=== PATIENT | male | born 1985 | race Caucasian/White ===

== ENCOUNTER 2020-05-27 14:46 | Inpatient (IN) | payer OTHER, SELFPAY ==
[2020-05-27] VITALS (25 sets, daily range): BP systolic 129–197; BP diastolic 63–134; PULSE 61–86; RESP 12–21; TEMP 36.3–37.1; O2SAT 96–99; BMI 34.4; BMI 33.8; BMI 107.0
--- NOTE | 2020-05-27 15:04 | EKG12_ITS ---
Test Reason : DIZZINESS Blood Pressure : / mmHG Vent. Rate : 066 BPM Atrial Rate : 066 BPM P-R Int : 188 ms QRS Dur : 114 ms QT Int : 432 ms P-R-T Axes : 029 -06 107 degrees QTc Int : 452 ms Normal sinus rhythm Possible Left atrial enlargement Left ventricular hypertrophy with repolarization abnormality Abnormal ECG Confirmed by NNAMDI RIVER, RC ([id number]), news videotape editor SALOMON WILLIAMSON ([id number]) on 05/29/2020 11:30:10 AM Referred By: EVELYN Confirmed By:RC COTO MD
--- NOTE | 2020-05-27 15:05 | CT_ITS ---
STUDY: CTA HEAD AND NECK WITH CONTRAST REASON FOR EXAM: Male, 34 years old. Vertigo, dizziness x 1 day, nausea, headache, hypertension. RADIATION DOSAGE (If Supplied By Facility): CTDIvol = ( 29.80 ) mGy, DLP = ( 1610.43 ) mGycm TECHNIQUE: CT angiography was performed with a multi-detector CT scanner. Data acquisition was obtained from the skull base through the vertex following intravenous administration of IV 100mL Isovue-370. MIP images were reconstructed from the axial data set. Post-processing of the angiographic images was performed, with multiplanar reformation and 3D reconstruction. Degree of stenosis (when present) measured utilizing NASCET criteria. Individualized dose optimization techniques were used for this CT. COMPARISON: No relevant priors. FINDINGS: Normal bilateral petrous carotid arteries. Normal right cavernous carotid artery with a normal supraclinoid bifurcation. Normal left cavernous carotid artery with a normal supraclinoid bifurcation. Normal right A1 segments of the anterior cerebral artery. Normal left A1 segments of the anterior cerebral artery. Normal intact anterior communicating artery (ACOM). Normal bilateral A2 segments of the anterior cerebral arteries. Normal right M1 and M2 segments of the middle cerebral arteries, with a normal M1 bifurcation. Normal left M1 and M2 segments of the middle cerebral arteries, with a normal M1 bifurcation. There is a persistent origin of the right posterior cerebral artery with absence of the posterior communicating artery (PCOM). There is non-visualization of the left posterior communicating artery (PCOM). Normal bilateral vertebral arteries. Normal basilar artery with a normal basilar bifurcation. The visualized bilateral superior cerebellar (SCA) arteries are normal. Normal bilateral P1, P2 and visualized P3 segments of the posterior cerebral arteries. There is no demonstrated aneurysm of the [place]. AORTIC ARCH: Normal visualized aortic arch. Normal origins of the brachiocephalic, left common carotid, and left subclavian arteries. RIGHT CAROTID ARTERIES: Normal right common carotid artery (CCA). There is mild atherosclerotic plaque formation with minimal narrowing of the right carotid bulb. Normal origin of the right internal carotid (ICA) artery without a hemodynamically significant stenosis. Normal visualized cervical portion of the right internal carotid artery. Normal origin of the right external carotid artery (ECA). LEFT CAROTID ARTERIES: Normal left common carotid artery (CCA). There is mild atherosclerotic plaque formation with minimal narrowing of the right carotid bulb. Normal origin of the left internal carotid (ICA) artery without a hemodynamically significant stenosis. Normal visualized cervical portion of the left internal carotid artery. Normal origin of the left external carotid artery (ECA). VERTEBRAL ARTERIES: Normal bilateral vertebral arteries. IMPRESSION: 1. No arterial dissection or intracranial/[place] aneurysm. 2. Minimal atherosclerosis of the bilateral carotid bulbs without hemodynamically significant stenosis. Electronically Signed: Nain Saini MD (Brooks) at 16:50 EDT , Service support , STUDY: CT BRAIN WITHOUT CONTRAST REASON FOR EXAM: Male, 34 years old. Vertigo, dizziness x 1 day, nausea, headache, hypertension. RADIATION DOSAGE (If Supplied By Facility): CTDIvol = ( 29.80 ) mGy, DLP = ( 1610.43 ) mGycm TECHNIQUE: Transaxial CT imaging of the brain was performed without administration of intravenous contrast material. Individualized dose optimization techniques were used for this CT. COMPARISON: No relevant priors. FINDINGS: Normal soft tissue structures. Normal calvarium. Normal size ventricles and extra-axial spaces for the patient''s age. Normal white matter tracts of the cerebral hemispheres. Normal basal ganglia and thalami. Normal brainstem. Normal cerebellum. There is no intracranial hemorrhage. There are no findings of an acute ischemic infarction. Normal visualized paranasal sinuses. CT/CTA Head AND Neck W/ Contrast IMPRESSION: No acute intracranial hemorrhage or mass effect. Electronically Signed: Nain Saini MD (Brooks) at 16:52 EDT , Service support ,
--- NOTE | 2020-05-27 15:14 | ED.DCSUM_ITS ---
- ER Visit Summary Date of Service: 05/27/20 Chief Complaint: Vertigo History of Present Illness: The patient is a 34 M who sees Kim Haider. He reports that he has vertigo that began yesterday at 530. This began while he was crouching down working on some pipes and then stood up. States that this re solved. However, when he is driving home and happened 2 more times became nauseated and vomited. He reports that is been constant since 830 yesterday. He feels off balance. He denies any slurred speech. No double vision. No numbness or weakness. No change in his hearing. No ear pain. No ringing in his ears. Patient reports that he is vomited twice altogether. There is been no blood in his emesis. He has a dull frontal headache that is 5-10 in severity. He does have a history of similar headaches. He denies any chest pain or palpitations. He denies any other complaints. Patient does report that he supposed be taking lisinopril/hydrochlorothiazide and metoprolol. He has not taken this for the past 6 months because he ran out of this. Physical Examination: Vitals: Stable. Afebrile. General: Well-nourished and well-developed. Head: Normocephalic atraumatic. HEENT: TMs are within normal limits bilaterally. Neck: Supple, no lymphadenopathy. No JVD. Nontender. Cardiovascular: Regular rate and rhythm. No murmurs. Respiratory: No respiratory distress. Clear to auscultation bilaterally. Abdominal: Soft, nontender, nondistended, normal bowel sounds. No guarding, rebound, or peritoneal signs. Back: Nontender. Extremities: Nontender, no edema. Skin: Normal color, no rash. Neurologic: Alert and oriented ?3. Cranial nerves II through XII are intact. Normal strength and sensation. Normal ltnstv-fmmc-[id number] and essb-tyjw-hhoz bilaterally. He does have horizontal nystagmus with gaze to the left only. Psych: Normal affect. Test Results: EKG is sinus at [address] changes consistent with benign early repolarization. However, he now has LVH with repolarization changes. These repolarization changes were not present in 2017. CBC shows 7 neutrophils 77 lymphocytes 16. Chem-7 shows potassium 3.8, glucose 110, BUN 23. Coags are normal. Clinical Impression(s) from Imaging Studies Head/Neck CTA 05/27/20 15:05 IMPRESSION: No acute intracranial hemorrhage or mass effect. Electronically Signed: Nain Saini MD (Brooks) at 16:52 EDT , Service support , Emergency Department Course and Treatment: Patient had an IV placed. He was given morphine, Zofran, and labetalol IV. He is given Antivert p.o. when the patient's labs returned he was given a dose of K-Dur p.o. repeat blood pressure is 169/102. Treatment Plan: Patient was discussed with Dr. Penny. He will be admitted to the hospital for further evaluation and treatment. Disposition: Admitted in improved condition. Impression: 1. Vertigo. 2. Cephalgia. 3. Hypertensive urgency. 4. Hypokalemia. This note was generated with [employer] dictation software. It may contain incorrect words, spelling, and punctuation that were not noted in review of the chart prior to signing ED Disposition - Plan for ED Patient: Referrals: Kim Haider NP, GERIATRIC NURSING ASSISTANT-C [Primary Care Provider] -
[2020-05-27] MEDS: Meclizine HCl 25 MG Tablet PO ×2 (15:28→21:38)
[2020-05-27] MEDS: Ondansetron 4 MG/2 ML Vial IV (15:28)
[2020-05-27] MEDS: 0.9% Normal Saline 1,000 ML 100 ML IV ×2 (15:28→18:40)
[2020-05-27 15:41] LABS: Absolute Lymphocyte Count 1.44 X10^3/uL (0.83-4.51); Basophil# 0.05 X10^3/uL; Basophil% 0.5 % (0-1); Eosinophil# 0.07 X10^3/uL; Eosinophils% 0.8 % (0-5); Hematocrit 41.8 % (40-54); Hemoglobin 14.5 g/dL (13.0-16.5); Lymphocyte # 1.44 X10^3/ul (4.0); Lymphocyte % 15.7 % (19-41); Mean Corp Hgb Conc 34.7 g/dL (32-36); Mean Corpuscular Hgb 29.9 pg (27.0-32.0); Mean Corpuscular Volume 86.2 fL (80-94); Mean Platelet Vol. 11.1 fl (6.2-12.0); Monocyte# 0.53 X10^3/uL; Monocyte% 5.8 % (0-10); NRBC Flagged by Analyzer 0 % (0-5); Neutrophil # 7.03 X10^3/uL (2.7-7.7); Neutrophil % 76.9 % (47-70); Platelet Count 222 K/mm3 (150-450); RBC Distribution Width CV 12.9 % (11.6-14.6); Red Blood Count 4.85 M/mm3 (4.6-6.2); White Blood Count 9.2 K/mm3 (4.4-11.0)
[2020-05-27 15:46] LABS: Bedside Glucose 110 mg/dL (70-110)
[2020-05-27 15:47] LABS: Partial Thromboplast Time 27.3 Seconds (24.1-36.2); Prothrombin Time (Protime)PT. 12.9 SECONDS (11.7-14.9)
[2020-05-27 15:52] LABS: Anion Gap 3 (5-15); BUN 23 mg/dL (7-18); BUN/Creat Ratio 23.6 RATIO (10-20); Calcium,Total 8.6 mg/dL (8.5-10.1); Chloride 107 mmol/L (98-107); Creatinine, Serum 0.97 mg/dL (0.70-1.30); EST Glomerular Filtration Rate 95 mL/min (>60); Est Glom Filt Rate - Afr Amer 114 mL/min (>60); Estimated Creatinine Clearance 112.89 ml/min; Glucose 110 mg/dL (74-106); Potassium 2.8 mmol/L (3.5-5.1); Sodium Level 141 mmol/L (136-145)
[2020-05-27] MEDS: Labetalol 100 MG/20 ML Vial 20 MG IV (16:27)
--- NOTE | 2020-05-27 17:06 | NURSING ---
PCU OBS [facility], VERTIGO
--- NOTE | 2020-05-27 17:08 | HP.PCM_ITS ---
Problem List (1) medical management Status: Chronic (2) Polycystic kidney Status: Chronic (3) Hypertension Status: Chronic (4) Appendicitis Status: Resolved History of Present Illness Date of Admission: 05/27/20 Chief Complaint: Vertigo. The patient is a 34 year old M who presents the emergency room due to vertigo. Patient reports vertigo began yesterday with intermittent episodes and has continued since that time. He reports associated nausea, vomiting. He denies chest pain, shortness of breath. Denies neurologic symptoms or focal deficits. Patient's blood pressure was noted to be significantly elevated upon presentation. He reports a history of polycystic kidney disease and hypertension. He has been off of his antihypertensives for approximately 6 months. He reports this is due to general noncompliance. Patient states he has had a history of vertigo and this episode feels similar to prior. He denies recent illness or other symptoms or complaints. He denies other past medical history. Past Medical History Past Medical History (Chronic Problems): Chronic Problems medical management (Chronic) Polycystic kidney (Chronic) Hypertension (Chronic) Allergies No Known Allergies Allergy (Verified 05/27/20 14:49) Home Medications: Ambulatory Orders Medication Instructions Recorded Hydrochlorothiazide 12.5 mg PO DAILY 07/04/14 Lisinopril [Zestril] 40 mg PO DAILY 07/04/14 Metoprolol Tartrate [Lopressor 100 mg PO BID 06/13/15 (beta vicki)] Surgical History: - - Appendectomy, left hand surgery. Psychiatric History: No pertinent psych hx Lives: Spouse/ Significant Other Smoking Status: Never smoker Alcohol: Occasional Drugs: None - *Family History Maternal History Items: Hypertension Paternal History Items: Hypertension Review of Systems Constitutional: Denies: Chills, Fever, Weight Change HEENT: Denies: Head Aches, Sinus Congestion, Sinus Drainage Cardiovascular: Denies: Chest Pain, Palpitations Respiratory: Denies: Cough, Shortness of breath at rest, Sputum production Gastrointestinal: Reports: - - Nausea, vomiting associated with vertigo. Denies: Abdominal Pain Genitourinary: Denies: Dysuria Musculoskeletal: Denies: Joint Pain, Joint Tenderness Skin: Denies: Rash, Wounds Neurological: Reports: - - Vertigo. Denies: Focal weakness, Numbness, Tingling Psychiatric: Denies: Anxiety, Depression, Homicidal Ideations, Suicidal Ideations Hematologic/ Lymphatic: Denies: Easy Bruising, Easy Bleeding VTE Information - Inpt Only VTE Present on Admission: No VTE Mechan Device Prophylaxis: None VTE Pharm Prophylaxis ordered?: No Reason prophylaxis not ordered:: Treatment Not Indicated - Physical Exam Vitals/I&O's: Vital Signs Temp Pulse Resp BP Pulse Ox 98.1 F 70 16 169/102 H 99 05/27/20 16:28 05/27/20 16:58 05/27/20 16:58 05/27/20 16:58 05/27/20 16:58 Oxygen Delivery Method Room Air Weight: 240 lb Body Mass Index (BMI) 34.4 Finger Stick Blood Glucose 110 General: Alert, Oriented x3, Cooperative HEENT: Atraumatic, PERRLA, EOMI, Normocephalic Neck: Supple, No JVD, Negative Carotid Bruits Lungs: Clear to auscultation, Normal air movement Cardiovascular: Regular rate, No murmurs Abdomen: Bowel Sounds Present, Soft, Non Tender, Non-Distended Extremities: No clubbing, No cyanosis, No edema, Capillary Refill Less than 3 Seconds Skin: No rashes, No breakdown Musculoskeletal: No Tenderness to Palpation of Joints or Extremities Neurological: Cranial nerves II-XII grossly intact, Neuro grossly intact Psych/Mental Status: Normal Affect, Appropriate Laboratory Results 05/27/20 15:30: WBC 9.2, RBC 4.85, Hgb 14.5, Hct 41.8, MCV 86.2, MCH 29.9, MCHC 34.7, RDW Std Deviation 40.0, RDW Coeff of Maureen 12.9, Plt Count 222, MPV 11.1, Immature Gran % (Auto) 0.300, Neut % (Auto) 76.9 H, Lymph % (Auto) 15.7 L, Hutchinson % (Auto) 5.8, Eos % (Auto) 0.8, Baso % (Auto) 0.5, Absolute Neuts (auto) 7.0, Absolute Lymphs (auto) 1.44, Nucleated RBC % 0 05/27/20 15:30: PT 12.9, INR 1.0, APTT 27.3 05/27/20 15:30: Sodium 141, Potassium 2.8 L, Chloride 107, Carbon Dioxide 31.0, Anion Gap 3 L, BUN 23 H, Creatinine 0.97, Estim Creat Clear Calc 112.89, Est GFR (MDRD) Af Amer 114, Est GFR (MDRD) Non-Af 95, BUN/Creatinine Ratio 23.6 H, Glucose 110 H, Calcium 8.6 05/27/20 15:38: POC Glucose 110 Current Medications Sodium Chloride () 1,000 mls @ 100 mls/hr IV .Q10H ONE Stop: 05/28/20 01:03 Last Admin: 05/27/20 15:28 Dose: 100 mls/hr Documented by: Iopamidol (Contrast Allergy Check) 0 ml IV X1 RODRIGO Assessment/Plan All Active Problems Appendicitis (Resolved) 1. Hypertensive urgency-due to noncompliance. Off of BP meds for 6 months. Patient with labile BP in ED. Will initiate Cardene. Heart rate 60s in ER, caution with labetalol. Transition to oral regimen pending MRI/BP improvement. Echo in a.m. 2. Vertigo, rule out CVA-CTA of head and neck unremarkable. Obtain MRI of brain. Scheduled meclizine. Aspirin, statin pending MRI brain. 3. Hypokalemia-replace per protocol. Trend BMP. 4. Polycystic kidney disease-follows with nephrology as outpatient. DVT prophylaxis- not indicated, low risk This patient was seen by ADRIANA Bowden under the supervision of Dr. Penny.
--- NOTE | 2020-05-27 17:20 | NURSING ---
ICU 5
--- NOTE | 2020-05-27 17:21 | NURSING ---
ICU 5
--- NOTE | 2020-05-27 17:58 | ECHOCS_ITS ---
Reason For Study: TIA/CVA Procedure This was a 2D Doppler, Color Flow transthoracic echocardiogram. The study was technically difficult. Contrast injection was performed. Exam performed portable in ICU/CCU. Left Ventricle Normal LV size. Severe concentric left ventricular hypertrophy. Left ventricular systolic function is normal. The estimated ejection fraction is 60 %. Stage 2 diastolic dysfunction. No regional wall motion abnormalities noted. Right Ventricle Normal RV size. Normal systolic function. Atria The left atrium is mildly enlarged. Normal right atrium. Bubble contrast study negative for right to left interatrial shunt. Mitral Valve Normal mitral valve. Tricuspid Valve Normal tricuspid valve. Aortic Valve Normal aortic valve. Trisinus/trileaflet aortic valve. Pulmonic Valve Normal pulmonic valve. Great Vessels Normal aortic root. The pulmonary artery is normal size. Normal inferior vena cava. Pericardium/Pleural No pericardial effusion. Medication Diluted definity 2ml given slow IV push to enhance endocardial definition. Performed a rapid injection of agitated mix of 9 cc saline and 1cc air to assess for atrial septal defect. MMode/2D Measurements & Calculations LVIDd: 4.8 cm IVSd: 2.0 cm Ao root diam: 4.4 cm LVIDs: 3.4 cm LVPWd: 1.8 cm LA dimension: 4.6 cm FS: 29.9 % LAV(MOD-bp): 63.2 ml LA A4 area: 22.7 cm2 RA A4 area: 20.2 cm2 LAV(MOD-bp) Indexed: 28.0 ml/m2 LAV(MOD-sp2): 46.3 ml LAV(MOD-sp4): 77.9 ml Time Measurements MV dec time: 0.15 sec Doppler Measurements & Calculations MV E max jus: 81.7 cm/sec Lat Peak E' Jus: 7.0 cm/sec Med Peak E' Jus: 8.3 cm/sec MV A max jus: 49.6 cm/sec E/E' lat: 11.6 E/E' med: 9.8 MV E/A: 1.6 MV V2 max: 97.1 cm/sec MV P1/2t max jus: 97.1 cm/sec Ao V2 max: 143.8 cm/sec MV max P.8 mmHg MV P1/2t: 67.6 msec Ao max P.3 mmHg MV V2 mean: 54.2 cm/sec MV dec slope: 420.7 cm/sec2 MV mean P.4 mmHg MV V2 VTI: 22.0 cm MVA(P1/2t): 3.3 cm2 LV V1 max: 123.3 cm/sec PA V2 max: 84.7 cm/sec LV V1 max P.1 mmHg Interpretation Summary Normal LV size. Severe concentric left ventricular hypertrophy. Left ventricular systolic function is normal. The estimated ejection fraction is 60 %. Stage 2 diastolic dysfunction. Bubble contrast study negative for right to left interatrial shunt. Ordering Physician: Celsa Penny Referring Physician: Kim Haider Performed By: Gerardo Rodriguez RCS
[2020-05-27] MEDS: Famotidine 20 MG Tablet PO (18:38)
[2020-05-27] MEDS: Aspirin 81 MG TAB.CHEW PO (18:38)
[2020-05-27 18:48] LABS: Magnesium 2.2 mg/dL (1.6-2.6); T4 Free Direct 0.84 ng/dL (0.76-1.46); Thyroid Stim Hormone (TSH) 0.76 uIU/mL (0.358-3.74)
[2020-05-27] MEDS: Atorvastatin Calcium 80 MG Tablet PO (21:38)
--- NOTE | 2020-05-27 22:22 | EKG12_ITS ---
Test Reason : RHYTHM CHANGE Blood Pressure : / mmHG Vent. Rate : 073 BPM Atrial Rate : 073 BPM P-R Int : 178 ms QRS Dur : 104 ms QT Int : 402 ms P-R-T Axes : 037 -03 087 degrees QTc Int : 442 ms Normal sinus rhythm Left ventricular hypertrophy with repolarization abnormality Abnormal ECG When compared with ECG of 28-MAY-2020 05:14, MANUAL COMPARISON REQUIRED, DATA IS UNCONFIRMED Confirmed by NNAMDI RIVER, RC ([id number]), sound editor SALOMON WILLIAMSON ([id number]) on 05/29/2020 12:46:05 PM Referred By: DONTRELL Confirmed By:RC COTO MD
[2020-05-27 22:36] LABS: Anion Gap 3 (5-15); BUN 17 mg/dL (7-18); BUN/Creat Ratio 18.4 RATIO (10-20); Calcium,Total 8.3 mg/dL (8.5-10.1); Chloride 109 mmol/L (98-107); Creatinine, Serum 0.92 mg/dL (0.70-1.30); EST Glomerular Filtration Rate 100 mL/min (>60); Est Glom Filt Rate - Afr Amer 121 mL/min (>60); Estimated Creatinine Clearance 119.02 ml/min; Glucose 130 mg/dL (74-106); Potassium 2.8 mmol/L (3.5-5.1); Sodium Level 141 mmol/L (136-145)
[2020-05-27 22:52] LABS: Amphetamine Urine VISTA NEGATIVE (<1000 ng/mL); Barbiturate Urine VISTA NEGATIVE (< 200 ng/mL); Benzodiazepine Urine VISTA NEGATIVE (< 200 ng/mL); Cocaine Urine VISTA NEGATIVE (< 300 ng/mL); Ecstacy Urine VISTA NEGATIVE (< 500 ng/mL); Methadone Urine VISTA NEGATIVE (< 300 ng/mL); PCP Urine VISTA NEGATIVE (< 25 ng/mL); THC Urine VISTA NEGATIVE (< 50 ng/mL); Vista UDS pH Range 6
[2020-05-27 23:39] LABS: Magnesium 2.1 mg/dL (1.6-2.6); Phosphorus 2.4 mg/dL (2.5-4.9)
[2020-05-28] VITALS (45 sets, daily range): BP systolic 129–193; BP diastolic 81–133; PULSE 51–88; RESP 8–24; TEMP 36.6–37.1; O2SAT 95–99; BMI 33.8
[2020-05-28] MEDS: 0.9% Normal Saline 1,000 ML 100 ML IV (04:00)
[2020-05-28] MEDS: Meclizine HCl 25 MG Tablet PO ×3 (05:07→21:03)
[2020-05-28 05:13] LABS: Absolute Neutrophil Count 5.8 X10^3/uL (2.0-7.7); Basophil# 0.05 X10^3/uL; Basophil% 0.6 % (0-1); Eosinophil# 0.25 X10^3/uL; Eosinophils% 2.8 % (0-5); Hematocrit 38.8 % (40-54); Hemoglobin 13.1 g/dL (13.0-16.5); Lymphocyte % 23.6 % (19-41); Mean Corp Hgb Conc 33.8 g/dL (32-36); Mean Corpuscular Hgb 29.4 pg (27.0-32.0); Mean Corpuscular Volume 87.2 fL (80-94); Mean Platelet Vol. 10.8 fl (6.2-12.0); Monocyte% 7.9 % (0-10); NRBC Flagged by Analyzer 0 % (0-5); Neutrophil # 5.77 X10^3/uL (2.7-7.7); Neutrophil % 64.8 % (47-70); Platelet Count 207 K/mm3 (150-450); RBC Distribution Width CV 12.8 % (11.6-14.6); RBC Distribution Width SD 40.7 fl (35.1-43.9); Red Blood Count 4.45 M/mm3 (4.6-6.2); White Blood Count 8.9 K/mm3 (4.4-11.0)
[2020-05-28 05:29] LABS: ALB/GLOB Ratio 0.9 RATIO (0.9-2.4); AST(SGOT) 17 U/L (15-37); Alanine Aminotransfer ALT/SGPT 28 U/L (16-61); Albumin, Serum 3.1 g/dL (3.2-5.0); Alkaline Phosphatase 59 U/L (45-117); Anion Gap 4 (5-15); BUN 15 mg/dL (7-18); BUN/Creat Ratio 16.6 RATIO (10-20); Calcium,Total 7.9 mg/dL (8.5-10.1); Chloride 110 mmol/L (98-107); Cholesterol 161 mg/dL (200); EST Glomerular Filtration Rate 103 mL/min (>60); Est Glom Filt Rate - Afr Amer 125 mL/min (>60); Estimated Creatinine Clearance 121.67 ml/min; Globulin 3.3 g/dL (2.2-4.2); Glucose 90 mg/dL (74-106); High Density Lipoprotein 41 mg/dL; Potassium 3.5 mmol/L (3.5-5.1); Protein, Total 6.4 g/dL (6.4-8.2); Sodium Level 142 mmol/L (136-145); Triglycerides 102 mg/dL; Very Low Density Lipoprotein 20 mg/dL (5-40)
--- NOTE | 2020-05-28 05:55 | MRI_ITS ---
STUDY: MRI BRAIN WITHOUT CONTRAST REASON FOR EXAM: Male, 34 years old. headache, vertigo, htn, ? posterior cva TECHNIQUE: Standardized multiplanar fat and water weighted pulse sequences were obtained. COMPARISON: 05/27/2020 and 09/23/2016 CT of the head FINDINGS: Unremarkable size of the ventricles and extra-axial spaces for the patient''s age. The ventricles are slightly asymmetric however stable since the prior examination 2016. There are multiple periventricular and subcortical white matter hyperintensities. These are atypical for age. There is a left basal ganglia focal hyperintensity which likely represents a chronic lacunar infarct. Normal bilateral basal ganglia. Normal thalami. There is no extra-axial fluid accumulation. Normal flow voids within the major intracranial circulation suggesting patency by spin echo criteria. Normal sella turcica, pituitary gland, infundibular stalk, optic chiasm and hypothalamus. Normal tectal plate and pineal gland. There are minimal hyperintensities of the stephanie. The midbrain and medulla are otherwise normal. Normal cerebellum. Normal basal cisterns. MRI/Brain without Contrast IMPRESSION: No acute intracranial abnormality. Left basal ganglia chronic lacunar infarct. Moderate white matter hyperintensities. Given the history of chronic hypertension, leading differential consideration is chronic microvascular ischemic disease. Electronically Signed: Yadi Robert MD at 12:07 EDT Tel , Service support ,
--- NOTE | 2020-05-28 05:55 | EKG12_ITS ---
Test Reason : AM EKG Blood Pressure : / mmHG Vent. Rate : 067 BPM Atrial Rate : 067 BPM P-R Int : 178 ms QRS Dur : 102 ms QT Int : 426 ms P-R-T Axes : 036 007 084 degrees QTc Int : 450 ms Normal sinus rhythm Left ventricular hypertrophy with repolarization abnormality Abnormal ECG When compared with ECG of 27-MAY-2020 22:15, MANUAL COMPARISON REQUIRED, DATA IS UNCONFIRMED Confirmed by NNAMDI RIVER, RC ([id number]), editor book SALOMON WILLIAMSON ([id number]) on 05/29/2020 12:46:19 PM Referred By: DONTRELL Confirmed By:RC COTO MD
[2020-05-28] MEDS: Labetalol (Prefilled) 20 MG/4 ML IV ×2 (07:26→08:35)
[2020-05-28] MEDS: 0.9% Saline Lock 10 ML Syringe IV (07:26)
--- NOTE | 2020-05-28 07:29 | EKG12_ITS ---
Test Reason : EKG CHANGES Blood Pressure : / mmHG Vent. Rate : 078 BPM Atrial Rate : 078 BPM P-R Int : 184 ms QRS Dur : 112 ms QT Int : 402 ms P-R-T Axes : 028 010 094 degrees QTc Int : 458 ms Normal sinus rhythm Left ventricular hypertrophy with repolarization abnormality Inferior infarct , age undetermined Abnormal ECG When compared with ECG of 27-MAY-2020 15:31, MANUAL COMPARISON REQUIRED, DATA IS UNCONFIRMED Confirmed by NNAMDI RIVER, RC ([id number]), acquisition editor SALOMON WILLIAMSON ([id number]) on 05/29/2020 12:47:27 PM Referred By: Confirmed By:RC COTO MD
--- NOTE | 2020-05-28 07:37 | CON.PCM_ITS ---
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 Patient had been reportedly crouching down working on some pipes and then stood up. Patient started to have a headache and then developed nausea and vomiting. Patient states the headache persisted for almost 24 hours and he had balance issues. Patient denied any other focal neurologic deficits such as slurred speech, double vision, numbness, weakness, tinnitus or problems hearing. No hematemesis was reported. Patient described the headache as frontal with 5 out of 10 severity. Patient has had similar type headaches. Patient denied any chest pain, palpitations, nausea or vomiting. Patient is reportedly supposed to be taking lisinopril, hydrochlorothiazide and metoprolol, but has not used this medication in the past 6 months. On presentation to the emergency department, patient's EKG showed early repolarization with LVH. Chemistry work-up was relatively unremarkable. CTA of the head and neck showed no intracranial hemorrhage or mass-effect. Patient was significantly hypertensive in the ER with a blood pressure of 169/102. Patient was given morphine, Zofran and IV labetalol and transferred to the intensive care unit for further evaluation. Overnight, patient did have to be initiated on a Cardene drip. Requirements were elevated secondary to possible ischemic encephalopathy. This was discontinued this morning, but patient insisted on higher blood pressures. Patient has intermittently reported chest heaviness, but EKGs have been relatively unremarkable except for early repolarization. Patient was evaluated by cardiology this morning. Patient reports that he has not been very good about taking medications for a while. Patient states he has heard of cerebral aneurysms associated with polycystic kidney disease, but is unclear if this is been present previously. Patient denies any coiling or other cerebral interventions. Patient continues to deny any focal neurologic deficits. Patient does work as a structural welder and denies any environmental exposures. Review of systems otherwise negative from a constitutional, HEENT, respiratory, cardiovascular, GI, genitourinary, musculoskeletal, skin, neurologic, psychiatric and hematologic system unless stated above. Past Medical History Past Medical History (Chronic Problems): Chronic Problems medical management (Chronic) Polycystic kidney (Chronic) Hypertension (Chronic) Allergies No Known Allergies Allergy (Verified 05/27/20 14:49) Home Medications: Ambulatory Orders Medication Instructions Recorded Hydrochlorothiazide 12.5 mg PO DAILY 07/04/14 Lisinopril [Zestril] 40 mg PO DAILY 07/04/14 Metoprolol Tartrate [Lopressor 100 mg PO BID 06/13/15 (beta vicki)] Surgical History: - - Appendectomy, left hand surgery. Psychiatric History: No pertinent psych hx Lives: Spouse/ Significant Other Smoking Status: Never smoker Alcohol: Occasional Drugs: None - *Family History Maternal History Items: Hypertension Paternal History Items: Hypertension Review of Systems Comment: See HPI Patient Problems: Active and Suspected Problems Dizziness (Acute) Headache (Acute) Objective: All imaging was personally reviewed. Agree with formal interpretation. Patient did have a stress report completed in 2017 that was unremarkable. No pulmonary function tests have been completed. - Physical Exam Vitals/I&O's: Vital Signs Temp Pulse Resp BP Pulse Ox 36.7 C 66 20 H 165/121 H 99 05/28/20 05:00 05/28/20 05:00 05/28/20 05:00 05/28/20 05:00 05/28/20 05:00 Oxygen Delivery Method Room Air Weight: 109 kg Body Mass Index (BMI) 33.8 Finger Stick Blood Glucose 110 Intake and Output for Last 24 Hours 05/26/20 05/27/20 05/28/20 23:59 23:59 23:59 Intake Total 417.50 / 517.50 2283.33 / 2283.33 Output Total 500 / 500 500 / 500 Balance -82.50 / 17.50 1783.33 / 1783.33 General: Alert, Oriented x3, Cooperative, No apparent distress, Well developed, Well nourished, - - Speaking in full sentences. No facial droop HEENT: Atraumatic, PERRLA, EOMI, Normocephalic, - - No scleral icterus or injection noted Oral: Moist Mucosa, No Gingival or Mucosal Lesions/ Ulcerations Neck: Supple, No JVD, No Nodes, Trachea Midline Lungs: Clear to auscultation, Normal air movement, No rhonchi, No wheeze, No rales Cardiovascular: Regular rate, Regular Rhythm, Normal S1, Normal S2, No murmurs, No rub noted, No Gallop Abdomen: Bowel Sounds Present, Soft, Non Tender, Non-Distended, Obese Extremities: No clubbing, No cyanosis, No edema, Capillary Refill Less than 3 Seconds Skin: No rashes, No breakdown Musculoskeletal: No Tenderness to Palpation of Joints or Extremities Lymphatic: No Cervical, Supraclavicular, or Inguinal Adenopathy Neurological: Cranial nerves II-XII grossly intact, Deep Tendon Reflexes 2+/4 and Symmetrical, Neuro grossly intact, Motor Exam 5/5 strength throughout Psych/Mental Status: Alert and oriented to time, place, person, mood and affect Laboratory Results 05/27/20 15:30: WBC 9.2, RBC 4.85, Hgb 14.5, Hct 41.8, MCV 86.2, MCH 29.9, MCHC 34.7, RDW Std Deviation 40.0, RDW Coeff of Maureen 12.9, Plt Count 222, MPV 11.1, Immature Gran % (Auto) 0.300, Neut % (Auto) 76.9 H, Lymph % (Auto) 15.7 L, Chase % (Auto) 5.8, Eos % (Auto) 0.8, Baso % (Auto) 0.5, Absolute Neuts (auto) 7.0, Absolute Lymphs (auto) 1.44, Nucleated RBC % 0 05/27/20 15:30: PT 12.9, INR 1.0, APTT 27.3 05/27/20 15:30: Sodium 141, Potassium 2.8 L, Chloride 107, Carbon Dioxide 31.0, Anion Gap 3 L, BUN 23 H, Creatinine 0.97, Estim Creat Clear Calc 112.89, Est GFR (MDRD) Af Amer 114, Est GFR (MDRD) Non-Af 95, BUN/Creatinine Ratio 23.6 H, Glucose 110 H, Calcium 8.6 05/27/20 15:30: Hemoglobin A1c 5.0 05/27/20 15:38: POC Glucose 110 05/27/20 18:15: Magnesium 2.2, Troponin I 0.018, TSH 0.76, Free T4 0.84 05/27/20 21:30: Urine Opiates Screen NEGATIVE, Urine Methadone Screen NEGATIVE, Ur Barbiturates Screen NEGATIVE, Ur Phencyclidine Scrn NEGATIVE, Ur Amphetamines Screen NEGATIVE, U Methamphetamin-MDMA NEGATIVE, U Benzodiazepines Scrn NEGATIVE, Urine Cocaine Screen NEGATIVE, U Cannabinoids Screen NEGATIVE, Ur Drug Screen Comment 05/27/20 21:30: Sodium 141, Potassium 2.8 L, Chloride 109 H, Carbon Dioxide 29.0, Anion Gap 3 L, BUN 17, Creatinine 0.92, Estim Creat Clear Calc 119.02, Est GFR (MDRD) Af Amer 121, Est GFR (MDRD) Non-Af 100, BUN/Creatinine Ratio 18.4, Glucose 130 H, Calcium 8.3 L 05/27/20 21:30: Troponin I 0.024 05/27/20 21:30: Phosphorus 2.4 L, Magnesium 2.1 05/28/20 00:30: Troponin I 0.022 05/28/20 05:00: WBC 8.9, RBC 4.45 L, Hgb 13.1, Hct 38.8 L, MCV 87.2, MCH 29.4, MCHC 33.8, RDW Std Deviation 40.7, RDW Coeff of Maureen 12.8, Plt Count 207, MPV 10.8, Immature Gran % (Auto) 0.300, Neut % (Auto) 64.8, Lymph % (Auto) 23.6, Chase % (Auto) 7.9, Eos % (Auto) 2.8, Baso % (Auto) 0.6, Absolute Neuts (auto) 5.8, Absolute Lymphs (auto) 2.10, Nucleated RBC % 0 05/28/20 05:00: Sodium 142, Potassium 3.5, Chloride 110 H, Carbon Dioxide 28.0, Anion Gap 4 L, BUN 15, Creatinine 0.90, Estim Creat Clear Calc 121.67, Est GFR (MDRD) Af Amer 125, Est GFR (MDRD) Non-Af 103, BUN/Creatinine Ratio 16.6, Glucose 90, Calcium 7.9 L, Total Bilirubin 0.40, AST 17, ALT 28, Alkaline Phosphatase 59, Total Protein 6.4, Albumin 3.1 L, Globulin 3.3, Albumin/Globulin Ratio 0.9, Triglycerides 102, Cholesterol 161, LDL Cholesterol 100, VLDL Cholesterol 20, HDL Cholesterol 41 Current Medications Acetaminophen (Tylenol) 650 mg PO Q6H PRN PRN PRN Reason: Pain Score 1-10/Temp > 100.7 F Al Hydroxide/Mg Hydroxide (Mylanta Ii) 30 ml PO Q6H PRN PRN PRN Reason: Gastric Burning Albuterol Sulfate (Ventolin Aerosols) 2.5 mg INHALATION Q2H PRN PRN PRN Reason: Dyspnea, wheezing Aspirin (Aspirin, Baby) 81 mg PO DAILY@0800 [facility] Last Admin: 05/27/20 18:38 Dose: 81 mg Documented by: Atorvastatin Calcium (Lipitor) 80 mg PO QHS [facility] Last Admin: 05/27/20 21:38 Dose: 80 mg Documented by: Enoxaparin Sodium (Lovenox) 40 mg SC DAILY [facility] Famotidine (Pepcid) 20 mg PO BID [facility] Last Admin: 05/27/20 18:38 Dose: 20 mg Documented by: Guaifenesin (Robitussin) 10 ml PO Q4H PRN PRN PRN Reason: COUGH Hydralazine HCl (Apresoline Iv) 5 mg IV Q30M PRN PRN Reason: to maintain BP goals Nicardipine HCl 25 mg/ Sodium (Chloride) 250 mls @ 50 mls/hr CONT INF .Q5H [facility]; Protocol Last Admin: 05/28/20 05:00 Dose: Not Given Documented by: Sodium Chloride () 250 mls @ 15 mls/hr IV .[id number] PRN PRN Reason: Saline Flush Sodium Chloride () 250 mls @ 15 mls/hr IV .[id number] PRN PRN Reason: Additional IVPB Infusion Labetalol HCl (Trandate) 10 - 20 mg IV Q10M PRN PRN PRN Reason: to Maintain BP Goals Last Admin: 05/28/20 07:26 Dose: 20 mg Documented by: Magnesium Hydroxide (Milk Of Magnesia) 30 ml PO DAILY PRN PRN PRN Reason: Constipation Meclizine HCl (Antivert) 25 mg PO TID [facility] Last Admin: 05/28/20 05:07 Dose: 25 mg Documented by: Melatonin (Melatonin) 3 mg PO QHS PRN PRN PRN Reason: INSOMNIA Morphine Sulfate () 4 mg IV Q3H PRN PRN PRN Reason: Pain Score 6-10/10 Ondansetron HCl (Zofran) 4 mg IV Q8H PRN PRN PRN Reason: NAUSEA/VOMITING Oxycodone HCl (Oxyir) 5 mg PO Q4H PRN PRN PRN Reason: Pain Score 4-5/10 Prochlorperazine Edisylate (Compazine Iv) 5 mg IV Q4H PRN PRN PRN Reason: Breakthrough Nausea/Vomiting Psyllium Hydrophilic Mucilloid (Metamucil) 1 packet PO DAILY PRN PRN PRN Reason: Constipation Senna/Docusate Sodium (Senokot-S, Amna-Colace) 2 tablet PO BID PRN PRN Reason: Constipation Sodium Chloride () 10 - 40 ml IV UD PRN PRN Reason: SALINE FLUSH Last Admin: 05/28/20 07:26 Dose: 10 ml Documented by: Throat Lozenges (Cepacol Sore Throat Lozenge) 1 lozenge MUCOUS MEM Q2H PRN PRN PRN Reason: SORE THROAT Clinical Impression(s) from Imaging Studies Head/Neck CTA 05/27/20 15:05 IMPRESSION: No acute intracranial hemorrhage or mass effect. Electronically Signed: Nain Saini MD (Brooks) at 16:52 EDT , Service support , Assessment/Plan Active and Suspected Problems Dizziness (Acute) Headache (Acute) RECOMMENDATIONS: 1. Obtain cardiology consult 2. Obtain MRI/MRA to evaluate for cerebral aneurysm versus infarct 3. Consider reinitiation of baseline blood pressure medications 4. Possibly reinitiate Cardene for aggressive blood pressure control 5. Hold Lovenox until MRI can be completed 6. Potentially transfer out of the intensive care unit later today pending MRI results. IMPRESSIONS: 1. Hypertensive urgency secondary to medication noncompliance Unclear etiology of dizziness. Patient has been noncompliant with antihypertensives at home leading to elevated blood pressures. Patient has reported intermittent chest pain, so cardiology will be asked to evaluate. Of secondary concern, cerebral aneurysms have been seen with polycystic kidney disease. MRA and MRI have been ordered. If negative, presentation may be secondary to noncompliance blood pressure medications and hypertensive urgency. Would defer to cardiology on if stress test is necessary. We will continue with Cardene. Consider reinitiation of baseline medications, but since cardiology is involved we will hold off on their opinion. Could consider a neurology consult pending results of MRI 2. Polycystic kidney disease/hypokalemia Patient with relatively normal renal function at this time. However, stressed to the patient that continued noncompliance with hypertensive medications could lead to significant worsening over time. Patient should be able to tolerate contrast for investigation. Patient responded well to oral supplementation. 3. Hypertension/history of noncompliance/obesity Complicates care, management, recovery and prognosis. Continue education. Inpatient E&M: 37142 Init Hosp L3
--- NOTE | 2020-05-28 08:14 | CON.PCM_ITS ---
Reason for Consult Date of Consultation: 05/28/20 Reason for Consultation: Abnormal EKG changes History of Present Illness: The patient is a 34 year old M with a past medical history significant for hypertension who presented to the hospital on 05/27/2020 with vertigo dizziness as well as a headache. He apparently had been working on some pipes when the above started. This headache was persistent and he also developed some nausea and vomiting. He denied slurred speech double vision numbness or tingling sensation. He is also denied any chest pain or palpitations nausea or vomiting. He previously was seen by cardiology but has not followed up in over 5 years. He was admitted to the intensive care unit he was started on nicardipine drip and an EKG was done. He was noted to have early repolarization but also had T wave inversions noted in lead I and aVL. Due to the above it was felt that cardiology should see him for further evaluation and management. At this particular time he appears to be quite stable. [] Past Medical History Allergies/Adverse Reactions: Allergies No Known Allergies Allergy (Verified 05/27/20 14:49) Home Medications: Ambulatory Orders Medication Instructions Recorded Hydrochlorothiazide 12.5 mg PO DAILY 07/04/14 Lisinopril [Zestril] 40 mg PO DAILY 07/04/14 Metoprolol Tartrate [Lopressor 100 mg PO BID 06/13/15 (beta vicki)] Past Medical History (Chronic Problems): Chronic Problems medical management (Chronic) Polycystic kidney (Chronic) Hypertension (Chronic) Surgical History: - - Appendectomy, left hand surgery. Psychiatric History: No pertinent psych hx - *Family History Maternal History Items: Hypertension Paternal History Items: Hypertension Lives: Spouse/ Significant Other Smoking Status: Never smoker Alcohol: Occasional Drugs: None Subjectve: Patient seen and evaluated. Objective: Vital Signs Temp Pulse Resp BP Pulse Ox 98.1 F 74 22 H 176/117 H 97 05/28/20 08:00 05/28/20 08:00 05/28/20 08:00 05/28/20 08:00 05/28/20 08:00 Oxygen Delivery Method Room Air Weight: 240 lb 4.862 oz Body Mass Index (BMI) 33.8 Finger Stick Blood Glucose 110 Intake and Output for Last 24 Hours 05/26/20 05/27/20 05/28/20 23:59 23:59 23:59 Intake Total 417.50 / 517.50 2696.66 / 2696.66 Output Total 500 / 500 500 / 500 Balance -82.50 / 17.50 2196.66 / 2196.66 General: Awake, Alert, Oriented x 3 HEENT: PERRL, EOMI, Sclera Non Icteric Neck: Supple, Good ROM, No Lymph Node Enlargement Lungs: Clear to auscultation Cardiovascular: Regular Rhythm, Normal S1, Normal S2, No Murmurs, No Rubs, No Gallops Vascular: No Carotid Bruits, Normal Femoral Pulses, Normal Radial Pulses, Normal Dorsalis Pedal Pulse, Normal Posterior Tibial Pulses Abdomen: Bowel Sounds Present, Soft, Non Tender, No HSM, No Organomegaly Extremities: No Cyanosis, No Clubbing, No edema Lymphatic: No Lymph Node Enlargement Neurological: No Focal Motor or Sensory Deficit Psych/Mental Status: Appropriate 05/27/20 15:30: WBC 9.2, RBC 4.85, Hgb 14.5, Hct 41.8, MCV 86.2, MCH 29.9, MCHC 34.7, Plt Count 222, MPV 11.1, Immature Gran % (Auto) 0.300, Neut % (Auto) 76.9 H, Lymph % (Auto) 15.7 L, [place] % (Auto) 5.8, Eos % (Auto) 0.8, Baso % (Auto) 0.5, Absolute Neuts (auto) 7.0, Nucleated RBC % 0 05/27/20 15:30: PT 12.9, INR 1.0, APTT 27.3 05/27/20 15:30: Sodium 141, Potassium 2.8 L, Chloride 107, Carbon Dioxide 31.0, Anion Gap 3 L, BUN 23 H, Creatinine 0.97, Est GFR (MDRD) Af Amer 114, Est GFR (MDRD) Non-Af 95, BUN/Creatinine Ratio 23.6 H, Glucose 110 H, Calcium 8.6 05/27/20 15:30: Hemoglobin A1c 5.0 05/27/20 18:15: Magnesium 2.2, Troponin I 0.018 05/27/20 21:30: Sodium 141, Potassium 2.8 L, Chloride 109 H, Carbon Dioxide 29.0, Anion Gap 3 L, BUN 17, Creatinine 0.92, Est GFR (MDRD) Af Amer 121, Est GFR (MDRD) Non-Af 100, BUN/Creatinine Ratio 18.4, Glucose 130 H, Calcium 8.3 L 05/27/20 21:30: Troponin I 0.024 05/27/20 21:30: Phosphorus 2.4 L, Magnesium 2.1 05/28/20 00:30: Troponin I 0.022 05/28/20 05:00: WBC 8.9, RBC 4.45 L, Hgb 13.1, Hct 38.8 L, MCV 87.2, MCH 29.4, MCHC 33.8, Plt Count 207, MPV 10.8, Immature Gran % (Auto) 0.300, Neut % (Auto) 64.8, Lymph % (Auto) 23.6, [place] % (Auto) 7.9, Eos % (Auto) 2.8, Baso % (Auto) 0.6, Absolute Neuts (auto) 5.8, Nucleated RBC % 0 05/28/20 05:00: Sodium 142, Potassium 3.5, Chloride 110 H, Carbon Dioxide 28.0, Anion Gap 4 L, BUN 15, Creatinine 0.90, Est GFR (MDRD) Af Amer 125, Est GFR (MDRD) Non-Af 103, BUN/Creatinine Ratio 16.6, Glucose 90, Calcium 7.9 L, Total Bilirubin 0.40, Triglycerides 102, Cholesterol 161, LDL Cholesterol 100, VLDL Cholesterol 20, HDL Cholesterol 41 Rhythm: EKG: Normal sinus rhythm with repolarization changes T wave inversions noted in 1 and aVL ECHO: Pending Stress Test: Cardiac Cath: PCI: CT Surgery: Holter monitor: EPS: PPM: CXR: Chest CT Scan: Assessment/Plan 1. Severe uncontrolled hypertension * Patient has a history of hypertension which has been longstanding. His previous echocardiogram from 2014 had demonstrated moderate LVH. The above exacerbation is likely due to noncompliance. My recommendation would be to reinstitute his current medical therapy with lisinopril, metoprolol, amlodipine as noted above. Hydrochlorothiazide can also be added depending on his response over the next 24 hours. * The echocardiogram should be repeated to assess his left ventricular function. * I think the EKG changes are secondary to repolarization. His cardiac enzymes are essentially unremarkable. We will continue to follow-up on the above. I do not think that any stress testing or invasive management at this time is warranted. * * Thank you for allowing me to participate in the care of your patient. Please don't hesitate to call if any issues arise.
--- NOTE | 2020-05-28 08:20 | NURSING ---
pt off floor to mri with finger lift operator. 20mg IV labetalol given to [facility], finger lift operator, per Dr Landry order to give if SBP >170 while down at MRI.
--- NOTE | 2020-05-28 08:47 | NURSING ---
Pre-MRI pt's b/p 193/132, 20mg IV Labetolol given IVP per order (see MAR).
[2020-05-28] MEDS: Famotidine 20 MG Tablet PO ×2 (09:57→21:03)
[2020-05-28] MEDS: amLODIPine 10 MG Tablet PO (09:57)
[2020-05-28] MEDS: Lisinopril 40 MG Tablet PO (09:57)
[2020-05-28] MEDS: Metoprolol Tartrate 100 MG Tablet PO ×2 (09:57→21:03)
--- NOTE | 2020-05-28 10:40 | CASEMGMT ---
RN SAMIRA Face to Face with patient for initial transition planning/care coordination assessment. RN CM introduced self and role at [facility]. Patient lying in bed, alert and oriented. Patient willing to participate in assessment and is able to answer all questions appropriately. Care providers, pharmacy, and demographics verified. Patient wishes to discharge home, denies need for home health at this time. Patient states he has no further needs or concerns at this time. CM to follow for discharge planning needs that may arise. PCP: Vitaly SAMUELS Specialists: None Preferred Pharmacy: [facility] Insurance: [facility] Prescription Benefit: yes Living Will/HPOA: none LNOK: Living Arrangements: Patient lives with in a 1 story home with 2 steps to enter the home. Patient states he is independent at home. Transportation: self, DME/HHC: Patient states he has BP cuff at home. Patient denies further DME or HHC. Disposition Plan: Patient to discharge home with family support and follow-up plans in place. Solange ESTRADA, RN, CM
[2020-05-28] MEDS: Enoxaparin 40 MG/0.4 ML Syringe SC (12:42)
[2020-05-28] MEDS: Aspirin 81 MG TAB.CHEW PO (12:42)
--- NOTE | 2020-05-28 13:10 | PCM.PN.HOSP ---
Patient Problems: Active and Suspected Problems Dizziness (Acute) Headache (Acute) Reason for Visit: hypertensive urgency Subjective: dizziness improved. Vitals/I&O's: Vital Signs Temp Pulse Resp BP Pulse Ox 37.1 C 77 21 H 149/89 H 98 05/28/20 12:00 05/28/20 13:00 05/28/20 13:00 05/28/20 13:00 05/28/20 13:00 Oxygen Delivery Method Room Air Weight: 109 kg Body Mass Index (BMI) 33.8 Finger Stick Blood Glucose 110 Intake and Output for Last 24 Hours 05/26/20 05/27/20 05/28/20 23:59 23:59 23:59 Intake Total 417.50 / 517.50 3259.16 / 3259.16 Output Total 500 / 500 1250 / 1250 Balance -82.50 / 17.50 General: Alert, No apparent distress HEENT: Atraumatic, Normocephalic Oral: Moist Mucosa, No Gingival or Mucosal Lesions/ Ulcerations Neck: No Nodes, Thyroid Normal Size and Texture Lungs: Clear to auscultation, Normal air movement, No rhonchi, No wheeze, No rales Cardiovascular: Regular rate, Regular Rhythm, Normal S1, Normal S2, No murmurs Abdomen: Bowel Sounds Present, Soft, Non Tender, Non-Distended Extremities: No edema, No Calf Tenderness Skin: No rashes, No breakdown Musculoskeletal: No Tenderness to Palpation of Joints or Extremities, No Muscle Wasting Psych/Mental Status: Normal Affect, Appropriate Laboratory Results 05/27/20 15:30: WBC 9.2, RBC 4.85, Hgb 14.5, Hct 41.8, MCV 86.2, MCH 29.9, MCHC 34.7, RDW Std Deviation 40.0, RDW Coeff of Maureen 12.9, Plt Count 222, MPV 11.1, Immature Gran % (Auto) 0.300, Neut % (Auto) 76.9 H, Lymph % (Auto) 15.7 L, [place] % (Auto) 5.8, Eos % (Auto) 0.8, Baso % (Auto) 0.5, Absolute Neuts (auto) 7.0, Absolute Lymphs (auto) 1.44, Nucleated RBC % 0 05/27/20 15:30: PT 12.9, INR 1.0, APTT 27.3 05/27/20 15:30: Sodium 141, Potassium 2.8 L, Chloride 107, Carbon Dioxide 31.0, Anion Gap 3 L, BUN 23 H, Creatinine 0.97, Estim Creat Clear Calc 112.89, Est GFR (MDRD) Af Amer 114, Est GFR (MDRD) Non-Af 95, BUN/Creatinine Ratio 23.6 H, Glucose 110 H, Calcium 8.6 05/27/20 15:30: Hemoglobin A1c 5.0 05/27/20 15:38: POC Glucose 110 05/27/20 18:15: Magnesium 2.2, Troponin I 0.018, TSH 0.76, Free T4 0.84 05/27/20 21:30: Urine Opiates Screen NEGATIVE, Urine Methadone Screen NEGATIVE, Ur Barbiturates Screen NEGATIVE, Ur Phencyclidine Scrn NEGATIVE, Ur Amphetamines Screen NEGATIVE, U Methamphetamin-MDMA NEGATIVE, U Benzodiazepines Scrn NEGATIVE, Urine Cocaine Screen NEGATIVE, U Cannabinoids Screen NEGATIVE, Ur Drug Screen Comment 05/27/20 21:30: Sodium 141, Potassium 2.8 L, Chloride 109 H, Carbon Dioxide 29.0, Anion Gap 3 L, BUN 17, Creatinine 0.92, Estim Creat Clear Calc 119.02, Est GFR (MDRD) Af Amer 121, Est GFR (MDRD) Non-Af 100, BUN/Creatinine Ratio 18.4, Glucose 130 H, Calcium 8.3 L 05/27/20 21:30: Troponin I 0.024 05/27/20 21:30: Phosphorus 2.4 L, Magnesium 2.1 05/28/20 00:30: Troponin I 0.022 05/28/20 05:00: WBC 8.9, RBC 4.45 L, Hgb 13.1, Hct 38.8 L, MCV 87.2, MCH 29.4, MCHC 33.8, RDW Std Deviation 40.7, RDW Coeff of Maureen 12.8, Plt Count 207, MPV 10.8, Immature Gran % (Auto) 0.300, Neut % (Auto) 64.8, Lymph % (Auto) 23.6, [place] % (Auto) 7.9, Eos % (Auto) 2.8, Baso % (Auto) 0.6, Absolute Neuts (auto) 5.8, Absolute Lymphs (auto) 2.10, Nucleated RBC % 0 05/28/20 05:00: Sodium 142, Potassium 3.5, Chloride 110 H, Carbon Dioxide 28.0, Anion Gap 4 L, BUN 15, Creatinine 0.90, Estim Creat Clear Calc 121.67, Est GFR (MDRD) Af Amer 125, Est GFR (MDRD) Non-Af 103, BUN/Creatinine Ratio 16.6, Glucose 90, Calcium 7.9 L, Total Bilirubin 0.40, AST 17, ALT 28, Alkaline Phosphatase 59, Total Protein 6.4, Albumin 3.1 L, Globulin 3.3, Albumin/Globulin Ratio 0.9, Triglycerides 102, Cholesterol 161, LDL Cholesterol 100, VLDL Cholesterol 20, HDL Cholesterol 41 Current Medications Acetaminophen (Tylenol) 650 mg PO Q6H PRN PRN PRN Reason: Pain Score 1-10/Temp > 100.7 F Albuterol Sulfate (Ventolin Aerosols) 2.5 mg INHALATION Q2H PRN PRN PRN Reason: Dyspnea, wheezing Amlodipine Besylate (Norvasc) 10 mg PO DAILY [facility] Last Admin: 05/28/20 09:57 Dose: 10 mg Documented by: Aspirin (Aspirin, Baby) 81 mg PO DAILY@0800 [facility] Last Admin: 05/28/20 12:42 Dose: 81 mg Documented by: Atorvastatin Calcium (Lipitor) 80 mg PO QHS [facility] Last Admin: 05/27/20 21:38 Dose: 80 mg Documented by: Enoxaparin Sodium (Lovenox) 40 mg SC DAILY [facility] Last Admin: 05/28/20 12:42 Dose: 40 mg Documented by: Famotidine (Pepcid) 20 mg PO BID [facility] Last Admin: 05/28/20 09:57 Dose: 20 mg Documented by: Hydralazine HCl (Apresoline Iv) 5 mg IV Q30M PRN PRN Reason: to maintain BP goals Nicardipine HCl 25 mg/ Sodium (Chloride) 250 mls @ 50 mls/hr CONT INF .Q5H [facility]; Protocol Last Titration: 05/28/20 13:00 Dose: 2.5 mg/hr, 25 mls/hr Documented by: Sodium Chloride () 250 mls @ 15 mls/hr IV .[id number] PRN PRN Reason: Saline Flush Sodium Chloride () 250 mls @ 15 mls/hr IV .[id number] PRN PRN Reason: Additional IVPB Infusion Labetalol HCl (Trandate) 10 - 20 mg IV Q10M PRN PRN PRN Reason: to Maintain BP Goals Last Admin: 05/28/20 08:35 Dose: 20 mg Documented by: Lisinopril (Zestril) 40 mg PO DAILY [facility] Last Admin: 05/28/20 09:57 Dose: 40 mg Documented by: Meclizine HCl (Antivert) 25 mg PO TID [facility] Last Admin: 05/28/20 12:43 Dose: 25 mg Documented by: Metoprolol Tartrate (Lopressor (Beta Gerber)) 100 mg PO BID [facility] Last Admin: 05/28/20 09:57 Dose: 100 mg Documented by: Senna/Docusate Sodium (Senokot-S, Amna-Colace) 2 tablet PO BID PRN PRN Reason: Constipation Sodium Chloride () 10 - 40 ml IV UD PRN PRN Reason: SALINE FLUSH Last Admin: 05/28/20 07:26 Dose: 10 ml Documented by: STROKE Vital Signs/Narrative: Vital Signs Temp Pulse Resp BP Pulse Ox 05/28/20 13:00 77 21 H 149/89 H 98 05/28/20 12:00 37.1 C 72 20 H 156/104 H 97 05/28/20 11:12 82 05/28/20 11:00 82 21 H 152/106 H 97 05/28/20 10:45 79 159/110 H 05/28/20 10:30 84 161/103 H 05/28/20 10:15 88 169/117 H 05/28/20 10:00 36.9 C 76 21 H 158/113 H 96 05/28/20 09:57 81 154/100 H 05/28/20 09:45 79 154/100 H 05/28/20 09:30 74 163/107 H 05/28/20 09:15 75 179/124 H Medical Necessity - Tobacco Use Smoking Status: Never smoker Assessment/Plan All Active Problems Dizziness (Acute) Headache (Acute) Appendicitis (Resolved) 1. hypertensive urgency improved on nicardipine gtt encouraged pt the importance of compliance and finding time to schedule medication for BP. echo showed EF 60% 2. vertigo maybe related with above supportive mgmt 3. hypokalemia improved with replacement 4. VTE prophylaxis: enoxaparin Inpatient E&M: 68419 Subs Hosp L2
--- NOTE | 2020-05-28 13:59 | CASEMGMT ---
SW did not complete a PHQ 9 as per physician patient did not have a Stroke or TIA. Mariaa RODRIGUEZ MSW
[2020-05-28] MEDS: Atorvastatin Calcium 80 MG Tablet PO (21:03)
[2020-05-29] VITALS (19 sets, daily range): BP systolic 125–168; BP diastolic 93–119; PULSE 54–97; RESP 13–23; TEMP 36.3–36.6; O2SAT 96–99; BMI 33.8
[2020-05-29] MEDS: Labetalol (Prefilled) 20 MG/4 ML IV (03:10)
[2020-05-29] MEDS: 0.9% Saline Lock 10 ML Syringe IV (03:13)
[2020-05-29] MEDS: Meclizine HCl 25 MG Tablet PO (05:49)
--- NOTE | 2020-05-29 07:00 | PN_ITS ---
Subjective: Patient did okay overnight. Patient's blood pressure continues to be elevated, but symptoms have resolved. Patient has been off of Cardene drip since yesterday at 2 PM. Patient denies any focal neurologic deficits. Objective: MRI shows a previous left basal ganglia infarct with moderate white matter changes consistent with hypertension General: Alert, Oriented x3, Cooperative, No apparent distress, Well developed, Well nourished, - - Speaking in full sentences. HEENT: Atraumatic, PERRLA, EOMI, Normocephalic, - - No scleral icterus or injection noted. Oral: Moist Mucosa, No Gingival or Mucosal Lesions/ Ulcerations Neck: Supple, No JVD, No Nodes, Trachea Midline Lungs: Clear to auscultation, Normal air movement, No rhonchi, No wheeze, No rales Cardiovascular: Regular rate, Regular Rhythm, Normal S1, Normal S2, No murmurs, No rub noted, No Gallop Abdomen: Bowel Sounds Present, Soft, Non Tender, Non-Distended, Obese Extremities: No clubbing, No cyanosis, No edema, Capillary Refill Less than 3 Seconds Skin: No rashes, No breakdown Musculoskeletal: No Tenderness to Palpation of Joints or Extremities Lymphatic: No Cervical, Supraclavicular, or Inguinal Adenopathy Neurological: Cranial nerves II-XII grossly intact, Neuro grossly intact, Motor Exam 5/5 strength throughout Psych/Mental Status: Alert and oriented to time, place, person, mood and affect Vital Signs Temp Pulse Resp BP Pulse Ox 36.6 C 59 L 17 144/112 H 97 05/29/20 04:00 05/29/20 06:00 05/29/20 06:00 05/29/20 06:00 05/29/20 06:00 Oxygen Delivery Method Room Air Weight: 110.4 kg Body Mass Index (BMI) 33.8 Finger Stick Blood Glucose 110 Intake and Output for Last 24 Hours 05/27/20 05/28/20 05/29/20 23:59 23:59 23:59 Intake Total 417.50 / 517.50 4109.16 / 4109.16 200 / 200 Output Total 500 / 500 2225 / 2225 250 / 250 Balance -82.50 / 17.50 1884.16 / 1884.16 -50 / -50 Labs (Last 48 Hours) 05/27/20 05/27/20 05/27/20 15:30 15:30 15:30 WBC 9.2 RBC 4.85 Hgb 14.5 Hct 41.8 MCV 86.2 MCH 29.9 MCHC 34.7 RDW Std Deviation 40.0 RDW Coeff of Maureen 12.9 Plt Count 222 MPV 11.1 Immature Gran % (Auto) 0.300 Neut % (Auto) 76.9 H Lymph % (Auto) 15.7 L Dawson % (Auto) 5.8 Eos % (Auto) 0.8 Baso % (Auto) 0.5 Absolute Neuts (auto) 7.0 Absolute Lymphs (auto) 1.44 Nucleated RBC % 0 PT 12.9 INR 1.0 APTT 27.3 Sodium 141 Potassium 2.8 L Chloride 107 Carbon Dioxide 31.0 Anion Gap 3 L BUN 23 H Creatinine 0.97 Estim Creat Clear Calc 112.89 Est GFR (MDRD) Af Amer 114 Est GFR (MDRD) Non-Af 95 BUN/Creatinine Ratio 23.6 H Glucose 110 H Hemoglobin A1c Calcium 8.6 Phosphorus Magnesium Total Bilirubin AST ALT Alkaline Phosphatase Troponin I Total Protein Albumin Globulin Albumin/Globulin Ratio Triglycerides Cholesterol LDL Cholesterol VLDL Cholesterol HDL Cholesterol TSH Free T4 Urine Opiates Screen Urine Methadone Screen Ur Barbiturates Screen Ur Phencyclidine Scrn Ur Amphetamines Screen U Methamphetamin-MDMA U Benzodiazepines Scrn Urine Cocaine Screen U Cannabinoids Screen Ur Drug Screen Comment POC Glucose 05/27/20 05/27/20 05/27/20 15:30 15:38 18:15 WBC RBC Hgb Hct MCV MCH MCHC RDW Std Deviation RDW Coeff of Maureen Plt Count MPV Immature Gran % (Auto) Neut % (Auto) Lymph % (Auto) [place] % (Auto) Eos % (Auto) Baso % (Auto) Absolute Neuts (auto) Absolute Lymphs (auto) Nucleated RBC % PT INR APTT Sodium Potassium Chloride Carbon Dioxide Anion Gap BUN Creatinine Estim Creat Clear Calc Est GFR (MDRD) Af Amer Est GFR (MDRD) Non-Af BUN/Creatinine Ratio Glucose Hemoglobin A1c 5.0 Calcium Phosphorus Magnesium 2.2 Total Bilirubin AST ALT Alkaline Phosphatase Troponin I 0.018 Total Protein Albumin Globulin Albumin/Globulin Ratio Triglycerides Cholesterol LDL Cholesterol VLDL Cholesterol HDL Cholesterol TSH 0.76 Free T4 0.84 Urine Opiates Screen Urine Methadone Screen Ur Barbiturates Screen Ur Phencyclidine Scrn Ur Amphetamines Screen U Methamphetamin-MDMA U Benzodiazepines Scrn Urine Cocaine Screen U Cannabinoids Screen Ur Drug Screen Comment POC Glucose 110 05/27/20 05/27/20 05/27/20 21:30 21:30 21:30 WBC RBC Hgb Hct MCV MCH MCHC RDW Std Deviation RDW Coeff of Maureen Plt Count MPV Immature Gran % (Auto) Neut % (Auto) Lymph % (Auto) [place] % (Auto) Eos % (Auto) Baso % (Auto) Absolute Neuts (auto) Absolute Lymphs (auto) Nucleated RBC % PT INR APTT Sodium 141 Potassium 2.8 L Chloride 109 H Carbon Dioxide 29.0 Anion Gap 3 L BUN 17 Creatinine 0.92 Estim Creat Clear Calc 119.02 Est GFR (MDRD) Af Amer 121 Est GFR (MDRD) Non-Af 100 BUN/Creatinine Ratio 18.4 Glucose 130 H Hemoglobin A1c Calcium 8.3 L Phosphorus Magnesium Total Bilirubin AST ALT Alkaline Phosphatase Troponin I 0.024 Total Protein Albumin Globulin Albumin/Globulin Ratio Triglycerides Cholesterol LDL Cholesterol VLDL Cholesterol HDL Cholesterol TSH Free T4 Urine Opiates Screen NEGATIVE Urine Methadone Screen NEGATIVE Ur Barbiturates Screen NEGATIVE Ur Phencyclidine Scrn NEGATIVE Ur Amphetamines Screen NEGATIVE U Methamphetamin-MDMA NEGATIVE U Benzodiazepines Scrn NEGATIVE Urine Cocaine Screen NEGATIVE U Cannabinoids Screen NEGATIVE Ur Drug Screen Comment POC Glucose 05/27/20 05/28/20 05/28/20 21:30 00:30 05:00 WBC 8.9 RBC 4.45 L Hgb 13.1 Hct 38.8 L MCV 87.2 MCH 29.4 MCHC 33.8 RDW Std Deviation 40.7 RDW Coeff of Maureen 12.8 Plt Count 207 MPV 10.8 Immature Gran % (Auto) 0.300 Neut % (Auto) 64.8 Lymph % (Auto) 23.6 [place] % (Auto) 7.9 Eos % (Auto) 2.8 Baso % (Auto) 0.6 Absolute Neuts (auto) 5.8 Absolute Lymphs (auto) 2.10 Nucleated RBC % 0 PT INR APTT Sodium Potassium Chloride Carbon Dioxide Anion Gap BUN Creatinine Estim Creat Clear Calc Est GFR (MDRD) Af Amer Est GFR (MDRD) Non-Af BUN/Creatinine Ratio Glucose Hemoglobin A1c Calcium Phosphorus 2.4 L Magnesium 2.1 Total Bilirubin AST ALT Alkaline Phosphatase Troponin I 0.022 Total Protein Albumin Globulin Albumin/Globulin Ratio Triglycerides Cholesterol LDL Cholesterol VLDL Cholesterol HDL Cholesterol TSH Free T4 Urine Opiates Screen Urine Methadone Screen Ur Barbiturates Screen Ur Phencyclidine Scrn Ur Amphetamines Screen U Methamphetamin-MDMA U Benzodiazepines Scrn Urine Cocaine Screen U Cannabinoids Screen Ur Drug Screen Comment POC Glucose 05/28/20 05:00 WBC RBC Hgb Hct MCV MCH MCHC RDW Std Deviation RDW Coeff of Maureen Plt Count MPV Immature Gran % (Auto) Neut % (Auto) Lymph % (Auto) [place] % (Auto) Eos % (Auto) Baso % (Auto) Absolute Neuts (auto) Absolute Lymphs (auto) Nucleated RBC % PT INR APTT Sodium 142 Potassium 3.5 Chloride 110 H Carbon Dioxide 28.0 Anion Gap 4 L BUN 15 Creatinine 0.90 Estim Creat Clear Calc 121.67 Est GFR (MDRD) Af Amer 125 Est GFR (MDRD) Non-Af 103 BUN/Creatinine Ratio 16.6 Glucose 90 Hemoglobin A1c Calcium 7.9 L Phosphorus Magnesium Total Bilirubin 0.40 AST 17 ALT 28 Alkaline Phosphatase 59 Troponin I Total Protein 6.4 Albumin 3.1 L Globulin 3.3 Albumin/Globulin Ratio 0.9 Triglycerides 102 Cholesterol 161 LDL Cholesterol 100 VLDL Cholesterol 20 HDL Cholesterol 41 TSH Free T4 Urine Opiates Screen Urine Methadone Screen Ur Barbiturates Screen Ur Phencyclidine Scrn Ur Amphetamines Screen U Methamphetamin-MDMA U Benzodiazepines Scrn Urine Cocaine Screen U Cannabinoids Screen Ur Drug Screen Comment POC Glucose Clinical Impression(s) from Imaging Studies Brain MRI 05/28/20 05:55 IMPRESSION: No acute intracranial abnormality. Left basal ganglia chronic lacunar infarct. Moderate white matter hyperintensities. Given the history of chronic hypertension, leading differential consideration is chronic microvascular ischemic disease. Electronically Signed: Yadi Robert MD at 12:07 EDT Tel , Service support , Medical Necessity - Tobacco Use Smoking Status: Unknown if ever smoked Assessment/Plan All Active Problems Dizziness (Acute) Headache (Acute) Appendicitis (Resolved) RECOMMENDATIONS: 1. Titration of antihypertensives per cardiology 2. Encourage compliance with antihypertensives 3. Increase activity as tolerated 4. Hemodynamically stable on room air. Will sign off from a critical care perspective IMPRESSIONS: 1. Hypertensive urgency secondary to medication noncompliance Patient with significant changes associated with chronic hypertension. Patient has not had any neurologic changes, but does have evidence of an old infarct and hypertensive changes on MRI. Echocardiogram shows diastolic dysfunction with LVH despite young age, likely secondary to noncompliance with antihypertensives. Patient's blood pressure does require continued optimization, but no Cardene has been required in the last 24 hours. Patient currently hemodynamically stable on room air. Will sign off from a critical care perspective. No outpatient follow-up would be indicated. 2. Polycystic kidney disease/hypokalemia Patient with relatively normal renal function at this time. However, stressed to the patient that continued noncompliance with hypertensive medications could lead to significant worsening over time. Patient should be ab le to tolerate contrast for investigation. Patient responded well to oral supplementation of potassium. 3. Hypertension/history of noncompliance/obesity Complicates care, management, recovery and prognosis. Continue education. Inpatient E&M: 65984 Subs Hosp L2
--- NOTE | 2020-05-29 07:23 | PN.CARD_ITS ---
Subjectve: Patient seen and evaluated. Appears to be doing better this morning. Objective: Vital Signs Temp Pulse Resp BP Pulse Ox 97.8 F 59 L 17 144/112 H 97 05/29/20 04:00 05/29/20 06:00 05/29/20 06:00 05/29/20 06:00 05/29/20 06:00 Oxygen Delivery Method Room Air Weight: 243 lb 6.245 oz Body Mass Index (BMI) 33.8 Finger Stick Blood Glucose 110 Intake and Output for Last 24 Hours 05/27/20 05/28/20 05/29/20 23:59 23:59 23:59 Intake Total 417.50 / 517.50 4109.16 / 4109.16 200 / 200 Output Total 500 / 500 2225 / 2225 250 / 250 Balance -82.50 / 17.50 1884.16 / 1884.16 -50 / -50 General: Awake, Alert, Oriented x 3 HEENT: PERRL, EOMI, Sclera Non Icteric Neck: Supple, Good ROM, No Lymph Node Enlargement Lungs: Clear to auscultation Cardiovascular: Regular Rhythm, Normal S1, Normal S2, No Murmurs, No Rubs, No Gallops Vascular: No Carotid Bruits, Normal Femoral Pulses, Normal Radial Pulses, Normal Dorsalis Pedal Pulse, Normal Posterior Tibial Pulses Abdomen: Bowel Sounds Present, Soft, Non Tender, No HSM, No Organomegaly Extremities: No Cyanosis, No Clubbing, No edema Musculoskeletal: No Erythema Skin: No Rashes Neurological: No Focal Motor or Sensory Deficit Rhythm: EKG: ECHO: Stress Test: Cardiac Cath: PCI: CT Surgery: Holter monitor: EPS: PPM: CXR: Chest CT Scan: Medical Necessity - Tobacco Use Smoking Status: Unknown if ever smoked Assessment/Plan 1. Severe uncontrolled hypertension * Patient has a history of hypertension which has been longstanding. His previous echocardiogram from 2014 had demonstrated moderate LVH. The above exacerbation is likely due to noncompliance. My recommendation would be to reinstitute his current medical therapy with lisinopril, metoprolol, amlodipine as noted above. Hydrochlorothiazide will be added to this morning. * The echocardiogram demonstrated severe LVH with preserved ejection fraction. * I think the EKG changes are secondary to repolarization. His cardiac enzymes are essentially unremarkable. We will continue to follow-up on the above. I do not think that any stress testing or invasive management at this time is warranted. * * * Patient can be discharged from my standpoint for outpatient follow-up * Thank you for allowing me to participate in the care of your patient. Please don't hesitate to call if any issues arise.
[2020-05-29] MEDS: amLODIPine 10 MG Tablet PO (07:38)
[2020-05-29] MEDS: Famotidine 20 MG Tablet PO (07:38)
[2020-05-29] MEDS: Lisinopril 40 MG Tablet PO (07:38)
[2020-05-29] MEDS: Aspirin 81 MG TAB.CHEW PO (07:38)
[2020-05-29] MEDS: hydroCHLOROthiazide 25 MG Tablet PO (07:38)
[2020-05-29] MEDS: Metoprolol Tartrate 100 MG Tablet PO (07:38)
--- NOTE | 2020-05-29 10:48 | CASEMGMT ---
RN CM Note: participated in ICU interdisciplinary rounds. Per PT/OT, no therapy recommended on discharge. Old infarct and hypertensive changes on MRI. Pt is off Nicardipine gtt and taking po antihypertensives. DC Plan: home on discharge. No dc needs identified at this time. Teri RAMIREZN RN ACM
--- NOTE | 2020-05-29 12:40 | CHAPLAIN ---
Type of Pastoral Visit _x__ Initial Visit ___ Follow-up Visit ___ On-call Visit ___ General Patient Visit ___ Spiritual Assessment ___ Family Conference ___ Bereavement ___ Rapid Response ___ Code Blue ___ Other (describe below) Pastoral Care Referral From _x__ Patient ___ Family ___ Nurse ___ Physician ___ General Manager [employer] ___ Prestidigitator _x__ Other (describe below) Sacrament/Intervention _x__ Active listening ___ Anointing ___ Jehovah'S Witness ___ Bereavement ___ Communion ___ Kerrie exploration ___ _x__ Life review _x__ Prayer ___ Reconciliation ___ Sacrament of Sick ___ Supportive presence ___ Wedding ___ Other (describe below) Pastoral Comments family clergy made request directly to this currency machine operator to make a visit in support of this patient; introduced self and role to patient who was welcoming to the same; pt is talkative and appears in good spirits; pt expects to be discharged soon; presence and prayer given
--- NOTE | 2020-05-29 13:49 | PCM.DC ---
- Discharge Diagnoses Current Active Problems: Current Active and Chronic Problems Dizziness (Acute) Headache (Acute) You will use the following diet at home:: Cardiac Call your doctor if you observe: Fever of 101 or Higher, Dizziness, Chest pain Instructions: Controlling High Blood Pressure, Eating a Low-Salt Diet, Low-Salt Choices, Taking Blood Pressure Medications Allergies/Adverse Reactions: Allergies No Known Allergies Allergy (Verified 05/27/20 14:49) Medications to take at Discharge Amlodipine [Norvasc] 10 mg PO DAILY #30 tab 05/29/20 Aspirin [Aspirin, Baby] 81 mg PO DAILY@0800 tab.chew 05/29/20 Hydrochlorothiazide [Hctz] 25 mg PO DAILY #30 tab 05/29/20 Lisinopril [Zestril] 40 mg PO DAILY #30 tab 05/29/20 Metoprolol Tartrate [Lopressor (beta vicki)] 100 mg PO BID #60 tab 05/29/20 The following prescriptions were given: Hydrochlorothiazide [Hctz] 25 mg PO DAILY #30 tab Transmission Status: Pending to [id number] Metoprolol Tartrate [Lopressor (beta vicki)] 100 mg PO BID #60 tab Transmission Status: Pending to [id number] Amlodipine [Norvasc] 10 mg PO DAILY #30 tab Transmission Status: Pending to [id number] Lisinopril [Zestril] 40 mg PO DAILY #30 tab Transmission Status: Pending to [id number] Primary Care Physician: Kim Haider NP, [facility] [facility] [Primary Care Provider] - Within 1 Week Test Results: Test results from this visit will be discussed in further detail at your follow-up appointment, if applicable. Proposed Discharge Date: 05/29/20
--- NOTE | 2020-05-29 13:50 | PCM.DC.SUM ---
Discharge Date and Diagnosis - Problem List Patient Problems: Active and Suspected Problems Hypertensive urgency (Acute) Date of Admission: 05/27/20 Date of Discharge: 05/29/20 - Primary Discharge Diagnosis Acute Problems: Active Problems Dizziness (Acute) Headache (Acute) - Secondary Discharge Diagnosis Chronic Problems: Chronic Problems medical management (Chronic) Polycystic kidney (Chronic) Hypertension (Chronic) Hospital Course and Treatment Imaging Results: Clinical Impression(s) from Imaging Studies Head/Neck CTA 05/27/20 15:05 IMPRESSION: No acute intracranial hemorrhage or mass effect. Electronically Signed: Nain Saini MD (Brooks) at 16:52 EDT , Service support , Brain MRI 05/28/20 05:55 IMPRESSION: No acute intracranial abnormality. Left basal ganglia chronic lacunar infarct. Moderate white matter hyperintensities. Given the history of chronic hypertension, leading differential consideration is chronic microvascular ischemic disease. Electronically Signed: Yadi Robert MD at 12:07 EDT Tel , Service support , [facility], cardiology Operations: appendectomy Procedures: 2-D Echocardiogram - Normal LV size. Severe concentric left ventricular hypertrophy. Left ventricular systolic function is normal. The estimated ejection fraction is 60 %. Stage 2 diastolic dysfunction. Bubble contrast study negative for right to left interatrial shunt. Summary of Care Provided: The patient is a 34 year old M presents with dizziness. Patient was found to have hypertensive urgency with diastolic blood pressure over 100. Patient had an MRI that showed a left basilar ganglia lacunar infarct. Patient was put on a nicardipine drip and blood pressure stayed stable. Nicardipine drip was discontinued on the and blood pressure has remained fairly well controlled. Patient will continue with amlodipine, metoprolol, lisinopril and hydrochlorothiazide. Been expressed to the patient compliance with his medications is a lot of his changes are associated with the uncontrolled blood pressure. Patient did have an echocardiogram that showed severe LVH and an EF of 60%. Stage II diastolic dysfunction. [] Patient Problems: Active and Suspected Problems Hypertensive urgency (Acute) - Physical Exam Vitals/I&O's: Vital Signs Temp Pulse Resp BP Pulse Ox 36.4 C L 65 19 H 166/111 H 98 05/29/20 12:00 05/29/20 13:00 05/29/20 13:00 05/29/20 13:00 05/29/20 13:00 Oxygen Delivery Method Room Air Weight: 110.4 kg Body Mass Index (BMI) 33.8 Finger Stick Blood Glucose 110 Intake and Output for Last 24 Hours 05/27/20 05/28/20 05/29/20 23:59 23:59 23:59 Intake Total 417.50 / 517.50 4109.16 / 4109.16 560 / 560 Output Total 500 / 500 2225 / 2225 1300 / 1300 Balance -82.50 / 17.50 1884.16 / 1884.16 -740 / -740 General: Alert, No apparent distress HEENT: Atraumatic, Normocephalic Oral: Moist Mucosa, No Gingival or Mucosal Lesions/ Ulcerations Neck: No Nodes, Thyroid Normal Size and Texture Lungs: Clear to auscultation, Normal air movement, No rhonchi, No wheeze, No rales Cardiovascular: Regular rate, Regular Rhythm, Normal S1, Normal S2, No murmurs Abdomen: Bowel Sounds Present, Soft, Non Tender, Non-Distended Extremities: No edema, No Calf Tenderness Psych/Mental Status: Normal Affect, Appropriate Current Medications Acetaminophen (Tylenol) 650 mg PO Q6H PRN PRN PRN Reason: Pain Score 1-10/Temp > 100.7 F Albuterol Sulfate (Ventolin Aerosols) 2.5 mg INHALATION Q2H PRN PRN PRN Reason: Dyspnea, wheezing Amlodipine Besylate (Norvasc) 10 mg PO DAILY [facility] Last Admin: 05/29/20 07:38 Dose: 10 mg Documented by: Aspirin (Aspirin, Baby) 81 mg PO DAILY@0800 [facility] Last Admin: 05/29/20 07:38 Dose: 81 mg Documented by: Atorvastatin Calcium (Lipitor) 80 mg PO QHS [facility] Last Admin: 05/28/20 21:03 Dose: 80 mg Documented by: Enoxaparin Sodium (Lovenox) 40 mg SC DAILY [facility] Last Admin: 05/29/20 07:38 Dose: Not Given Documented by: Famotidine (Pepcid) 20 mg PO BID [facility] Last Admin: 05/29/20 07:38 Dose: 20 mg Documented by: Hydralazine HCl (Apresoline Iv) 5 mg IV Q30M PRN PRN Reason: to maintain BP goals Hydrochlorothiazide (Hctz) 25 mg PO DAILY [facility] Last Admin: 05/29/20 07:38 Dose: 25 mg Documented by: Sodium Chloride () 250 mls @ 15 mls/hr IV .[id number] PRN PRN Reason: Saline Flush Sodium Chloride () 250 mls @ 15 mls/hr IV .[id number] PRN PRN Reason: Additional IVPB Infusion Labetalol HCl (Trandate) 10 - 20 mg IV Q10M PRN PRN PRN Reason: to Maintain BP Goals Last Admin: 05/29/20 03:10 Dose: 20 mg Documented by: Lisinopril (Zestril) 40 mg PO DAILY [facility] Last Admin: 05/29/20 07:38 Dose: 40 mg Documented by: Meclizine HCl (Antivert) 25 mg PO TID [facility] Last Admin: 05/29/20 05:49 Dose: 25 mg Documented by: Metoprolol Tartrate (Lopressor (Beta Gerber)) 100 mg PO BID [facility] Last Admin: 05/29/20 07:38 Dose: 100 mg Documented by: Senna/Docusate Sodium (Senokot-S, Amna-Colace) 2 tablet PO BID PRN PRN Reason: Constipation Sodium Chloride () 10 - 40 ml IV UD PRN PRN Reason: SALINE FLUSH Last Admin: 05/29/20 03:13 Dose: 10 ml Documented by: Discharge Diet: No Restrictions Call your doctor if you observe: Fever of 101 or Higher, Dizziness, Chest pain Home Medications: Medications to take at Discharge Amlodipine [Norvasc] 10 mg PO DAILY #30 tab 05/29/20 Aspirin [Aspirin, Baby] 81 mg PO DAILY@0800 tab.chew 05/29/20 Hydrochlorothiazide [Hctz] 25 mg PO DAILY #30 tab 05/29/20 Lisinopril [Zestril] 40 mg PO DAILY #30 tab 05/29/20 Metoprolol Tartrate [Lopressor (beta gerber)] 100 mg PO BID #60 tab 05/29/20 Following Prescriptions Were Given to Patient: Hydrochlorothiazide [Hctz] 25 mg PO DAILY #30 tab Transmission Status: Pending to [facility]/pharmacy #[id number] Metoprolol Tartrate [Lopressor (beta gerber)] 100 mg PO BID #60 tab Transmission Status: Pending to [facility]/pharmacy #[id number] Amlodipine [Norvasc] 10 mg PO DAILY #30 tab Transmission Status: Pending to [facility]pharmacy [facility][id number] Lisinopril [Zestril] 40 mg PO DAILY #30 tab Transmission Status: Pending to [facility]/pharmacy #[id number] Primary Care Physician: Kim Haider NP, B[employer] AND CELLOPH[employer]ER HELPER MACHINE-C [Primary Care Provider] - Within 1 Week Patient Instructions: Controlling High Blood Pressure, Low-Salt Choices, Eating a Low-Salt Diet, Taking Blood Pressure Medications Disposition: Home Minutes spent on discharge:: 32 Patient Condition:: Good Medical Necessity - Tobacco Use Smoking Status: Unknown if ever smoked Meaningful Use Info Meaningful Use Diagnoses (Choose all that apply): None applicable Inpatient E&M: 33933 [facility] Hosp
== END 2020-05-29 14:20 | disposition home or self-care (01) | DRG 305 ==
LOC: ED 15:42 → ICU 21:50
PROVIDERS: Family Medicine; Admitting Provider Family Medicine; Emergency Provider Emergency Medicine; PCP Nurse Practitioner
DX: I16.0 Hypertensive urgency (principal); Q61.3 Polycystic kidney, unspecified; I10 Essential (primary) hypertension; Z91.14 Patient's other noncompliance with medication regimen; E87.6 Hypokalemia; E66.9 Obesity, unspecified; Z68.34 Body mass index [BMI] 34.0-34.9, adult; Z86.73 Personal history of transient ischemic attack (TIA), and cerebral infarction without residual deficits
CPT/HCPCS: 70496; 70498; 70551; 80048; 80053; 80061; 80307; 82962; 83036; 83735; 84100; 84439; 84443; 84484; 85025; 85610; 85730; 92610; 93005; 93306; 97161; 97166; 97802; 99251; 99285; J7030; J7050; Q9957; Q9967; A4216; C8929; G0463; J2405

== ENCOUNTER → 2021-03-08 08:47 | Outpatient (CLI) | payer OTHER, SELFPAY ==
[2021-02-26 15:41] VITALS: BMI 35.4
== END ==
PROVIDERS: PCP Nurse Practitioner; Referring Provider Internal Medicine Cardiovascular Disease; Visit Provider Internal Medicine Cardiovascular Disease
DX: I10 Essential (primary) hypertension (principal)
CPT/HCPCS: 93788

== ENCOUNTER → 2021-03-13 15:36 | Outpatient (CLI) | payer OTHER, SELFPAY ==
[2021-02-26 15:41] VITALS: BMI 35.4
[2021-03-13 16:55] LABS: Anion Gap 6 (5-15); BUN 25 mg/dL (7-18); BUN/Creat Ratio 20.7 RATIO (10-20); Calcium,Total 9.4 mg/dL (8.5-10.1); Chloride 101 mmol/L (98-107); Creatinine, Serum 1.21 mg/dL (0.70-1.30); EST Glomerular Filtration Rate 73 mL/min (>60); Est Glom Filt Rate - Afr Amer 89 mL/min (>60); Glucose 87 mg/dL (74-106); Sodium Level 136 mmol/L (136-145)
[2021-03-19 20:09] LABS: Aldosterone, Serum 3.2 ng/dL (0.0-30.0)
[2021-03-19 20:47] LABS: Renin, Plasma 13.145 ng/mL/hr (0.167-5.380)
== END ==
PROVIDERS: PCP Nurse Practitioner; Referring Provider Internal Medicine Cardiovascular Disease; Visit Provider Internal Medicine Cardiovascular Disease
DX: I10 Essential (primary) hypertension (principal); Q61.3 Polycystic kidney, unspecified
CPT/HCPCS: 36415; 80048; 82088; 84244

== ENCOUNTER → 2021-03-18 07:09 | Outpatient (CLI) | payer OTHER, SELFPAY ==
[2021-02-26 15:41] VITALS: BMI 35.4
--- NOTE | 2021-03-18 07:20 | CT_ITS ---
STUDY: CT ABDOMEN AND PELVIS WITH AND WITHOUT CONTRAST REASON FOR EXAM: Male, 35 years old. R/O renal artery stenosis RADIATION DOSAGE (If Supplied By Facility): CTDIvol = ( 19.93 ) mGy, DLP = ( 1324.64 ) mGycm TECHNIQUE: Transaxial images were obtained from the dome of the diaphragm to the symphysis pubis without oral contrast. IV 100mL Isovue-370 was administered. Sagittal and coronal images were reconstructed. Individualized dose optimization techniques were used for this CT. COMPARISON: None. FINDINGS: The visualized lung bases are unremarkable. The visualized portions of the heart are within normal limits. There is decreased attenuation of the liver consistent with steatosis. Questionable tiny layering gallstones. Normal spleen. Normal pancreas. Normal bilateral adrenal glands. Normal right kidney. Normal left kidney. Normal visualized stomach. Normal small intestine. Normal colon. There are surgical clips in the region of the appendix consistent with a prior appendectomy. Normal abdominal aorta. No evidence of renal arterial stenosis. Normal inferior vena cava. Normal retroperitoneum. Normal urinary bladder. Normal abdominal wall. Normal osseous structures. CT/CT ANGIO ABD&PEL W/O&W/DYE IMPRESSION: No evidence of renal arterial stenosis. Fatty infiltration of the liver. Questionable tiny layering gallstones. Electronically Signed: Arvind Saucedo MD at 11:19 EDT , Service support ,
== END ==
PROVIDERS: PCP Nurse Practitioner; Referring Provider Internal Medicine Cardiovascular Disease; Visit Provider Internal Medicine Cardiovascular Disease
DX: Q61.3 Polycystic kidney, unspecified (principal); I10 Essential (primary) hypertension
CPT/HCPCS: 74174; Q9967

== ENCOUNTER 2021-04-05 21:21 | Emergency (ER) | payer OTHER, SELFPAY ==
[2021-02-26 15:41] VITALS: BMI 35.4
[2021-04-05 21:22] VITALS: BP 162/97; PULSE 121; RESP 16; TEMP 37.1; O2SAT 98; BMI 34.9
[2021-04-05 21:58] VITALS: BP 130/89; PULSE 112; RESP 18; TEMP 37.1; O2SAT 96
--- NOTE | 2021-04-05 22:10 | EKG12_ITS ---
Test Reason : DYSRHYTHMIA Blood Pressure : / mmHG Vent. Rate : 109 BPM Atrial Rate : 109 BPM P-R Int : 170 ms QRS Dur : 090 ms QT Int : 330 ms P-R-T Axes : 017 011 056 degrees QTc Int : 444 ms Sinus tachycardia Poor R wave progression Confirmed by CECY RIVER, URIEL ([id number]), editor trade journal SALOMON WILLIAMSON ([id number]) on 04/09/2021 9:02:59 AM Referred By: QUYEN Confirmed By:URIEL SAM MD
--- NOTE | 2021-04-05 22:11 | EDS_ITS ---
HPI History of Present Illness Chief Complaint: Hypotension Detail of Chief Complaint: Not feeling well and concern for low blood pressure Narrative Narrative: Patient presents to the emergency department stating that he was diagnosed with Covid 5 days ago. Patient has been having symptoms for 6 days. He complains of continued fever as well as body aches. Today's been feeling lightheaded throughout the day and when checking his blood pressure noted that it was 110 systolic to 118 systolic which is unusually low for him. Patient is medicated for hypertension and normally his pressure runs around 145 systolic. Patient states otherwise he had been having a relatively good day today. He has been eating and drinking. Has had some intermittent diarrhea. He had 1 episode of vomiting yesterday. Patient denies any chest pain. Denies any significant shortness of breath. Prior similar symptoms: No PFSH PFS Medical History (Updated 04/06/21 @ 00:[address] Alexei Fowler DO) Essential (primary) hypertension High-renin essential hypertension Malignant hypertension Obesity Polycystic kidney Polycystic kidney disease Home Medications amlodipine 10 mg tablet 10 mg PO DAILY #90 tab 06/01/20 [Rx Last Taken Unknown] hydrochlorothiazide 25 mg tablet 25 mg PO DAILY #90 tab 06/01/20 [Rx Last Taken Unknown] lisinopril 40 mg tablet 40 mg PO DAILY #90 tab 06/01/20 [Rx Last Taken Unknown] metoprolol tartrate 100 mg tablet 100 mg PO BID #180 tab 06/01/20 [Rx Last Taken Unknown] spironolactone 25 mg tablet 25 mg PO DAILY #30 tab 03/11/21 [Rx Last Taken Unknown] Allergy/AdvReac Type Severity Reaction Status Date / Time No Known Allergies Allergy Verified 04/05/21 21:25 Surgical History H/O hand surgery Social History Smoking Status: Never smoker ROS ROS ED Constitutional Constitutional ED: Reports systems reviewed and no addt'l complaints, except as documented and fever(s); Denies body ache(s), change in weight or chills Eyes Eyes: Denies acute decrease in peripheral vision, change in vision, double vision or loss of vision ENT ENT ED: Reports none; Denies ear pain, lip swelling, loss taste/smell, neck pain, otalgia or sore throat Cardiovascular Cardiovascular: Reports none; Denies abdominal pain, chest pain with activity, leg edema, lightheadedness, palpitations, rapid heart rate or syncope Respiratory/Chest Respiratory/Chest: Reports none and cough; Denies change in mental status, dry cough, dyspnea, hemoptysis, shortness of breath at rest or shortness of breath with exertion Gastrointestinal Gastrointestinal: Reports none and diarrhea; Denies abdominal pain, change in stool character, hematemesis, hematochezia, melena, rectal bleeding or vomiting Genitourinary Genitourinary ED: Reports none; Denies abdominal discomfort, anuria, dysuria, genital pain or polyuria Musculoskeletal Musculoskeletal: Reports none and myalgias; Denies arthralgias, back pain, difficulty walking, extremity pain or muscle weakness Integumentary Reports none; Denies abscess or rash Neurologic Neurologic: Reports none and headache(s); Denies abnormal gait, confusion, focal weakness, frequent falls, loss of vision, numbness, paresthesias, radicular pain, vertigo or weakness Psychiatric Psychiatric: Reports systems reviewed and no addt'l complaints, except as documented and none; Denies behavioral changes, confusion, difficulty concentrating, hallucinations, suicidal ideation, tactile hallucinations or visual hallucinations Endocrine Endocrinology: Denies none, cold intolerance, excessive sweating, fatigue or heat intolerance Hematologic/Lymphatic Hematologic/Lymphatic: Reports none; Denies anemia, easy bleeding or easy bruising Allergic/Immunologic Allergic/Immunologic ED: Denies as per HPI, none, lip swelling, mouth swelling, throat swelling, tongue swelling or hives EXAM Physical Exam Const Vital Signs: 04/05/21 21:22 04/05/21 21:58 04/05/21 22:08 Temperature 98.8 F 98.8 F Temperature Source Temporal Temporal Pulse Rate 121 H 112 H Pulse Rate [Lying] Pulse Rate [Sitting] Pulse Rate [Standing] Respiratory Rate 16 18 Respiratory Effort Normal Respiratory Pattern Normal Blood Pressure 162/97 H 130/89 H Blood Pressure [Lying] Blood Pressure [Sitting] Blood Pressure [Standing] Blood Pressure Mean 118 102 Blood Pressure Mean [Lying] Blood Pressure Mean [Sitting] Blood Pressure Mean [Standing] Pulse Ox 98 96 Oxygen Delivery Method Room Air Room Air 04/05/21 22:30 04/05/21 22:34 04/05/21 23:46 Temperature 98.8 F 98.7 F Temperature Source Temporal Oral Pulse Rate 114 H 18 L Pulse Rate [Lying] 107 H Pulse Rate [Sitting] 113 H Pulse Rate [Standing] 117 H Respiratory Rate 18 17 Respiratory Effort Respiratory Pattern Blood Pressure 139/82 H 124/77 H Blood Pressure [Lying] 125/87 H Blood Pressure [Sitting] 145/97 H Blood Pressure [Standing] 139/82 H Blood Pressure Mean 101 92 Blood Pressure Mean [Lying] 99 Blood Pressure Mean [Sitting] 113 Blood Pressure Mean [Standing] 101 Pulse Ox 96 97 Oxygen Delivery Method Room Air Room Air Positive well nourished and well developed General Appearance ED: well developed and NAD HEENT Reports TM's clear and moist mucous membranes normocephalic and atraumatic; Negative for trauma or tenderness Tympanic Membrane ED: Yes TM's clear Eyes PERRL and EOMs intact bilaterally General Eye ED: Negative for pale conjunctiva or scleral icterus Neck no lymphadenopathy, supple and no JVD General: Negative for tenderness Chest Wall inspection of chest normal and palpation of chest normal Chest: Negative for tenderness Resp normal respiratory effort and clear to auscultation bilaterally Effort and Inspection: Negative for respiratory distress or pain with movement Auscultation: Negative for rhonchi, wheezes or diminished lung sounds Cardio regular rhythm, S1 normal heart sound, S2 normal heart sound and no murmurs Rate: tachycardic Peripheral Pulses: pulses 2+ throughout GI normal to inspection, nondistended, normoactive bowel sounds, soft to palpation, non-tender, non-distended and no masses Back/Spine no CVA tenderness and no thoracic nor lumbar tenderness Extremity normal to inspection General Extremety ED: Negative for edema General Extremity: Negative for edema Neuro oriented x3, CN's II-XII intact bilaterally, no sensory deficits noted and gait normal Sensorium / Orientation: awake, alert, oriented to person, oriented to place and oriented to time Motor Exam: strength 5/5 throughout and strength abnormal Psych mental status grossly normal Skin no rashes or lesions noted and no wounds MDM MDM MDM Narrative Medical decision making narrative: Patient's work-up in department unremarkable. He did receive some Toradol and some gentle hydration. He was noted to have some renal insufficiency for which she is going to follow-up with a pelletizer tender as he does have history of polycystic kidney disease. At this point no further treatment indicated. Patient to follow-up with his primary care physician in 5 to 7 days. Patient advised to return if increasing shortness of breath or condition should worsen anyway. Patient's last blood pressure 140s over 110. He is currently at baseline. Lab Data Attestation: I reviewed the patient's lab results. Labs: Laboratory Results - last 24 hr 04/05/21 04/05/21 22:14 22:14 WBC 4.0 L RBC 4.83 Hgb 14.1 Hct 42.3 MCV 87.6 MCH 29.2 MCHC 33.3 RDW Std Deviation 39.8 RDW Coeff of Maureen 12.4 Plt Count 120 L MPV 11.7 Immature Gran % (Auto) 0.500 Neut % (Auto) 63.5 Lymph % (Auto) 23.9 Gove % (Auto) 11.7 H Eos % (Auto) 0.2 Baso % (Auto) 0.2 Absolute Neuts (auto) 2.5 Absolute Lymphs (auto) 0.96 Nucleated RBC % 0 Sodium 135 L Potassium 3.9 Chloride 99 Carbon Dioxide 30.0 Anion Gap 6 BUN 24 H Creatinine 1.55 H Estim Creat Clear Calc 69.99 Est GFR (MDRD) Af Amer 67 Est GFR (MDRD) Non-Af 55 L BUN/Creatinine Ratio 15.5 Glucose 104 Calcium 8.2 L Troponin I High Sens 10.0 Radiography Chest X-Ray - ED: 1 View Diagnostic Testing: Radiology Impression Chest X-Ray 04/05/21 22:25 IMPRESSION: Normal x-ray examination of the chest. Electronically Signed: Glen Ca DO at 22:58 EDT Tel , Service support , 1 view chest x-ray obtained interpreted by myself as no acute disease process. Radiology in agreement. EKG Initial EKG: Attestation: I personally reviewed and interpreted this EKG as follows: Comments: Sinus tachycardia with a ventricular rate of 109 bpm with no acute ST segment changes. Discharge Plan Triage Chief Complaint: Hypotension ED Provider: Alexei Fowler Dx/Rx/DC Orders Clinical Impression: COVID-19 Instructions: Coronavirus Disease 2019 (COVID-19): Overview Prescriptions: No Action amlodipine 10 mg tablet 10 mg PO DAILY Qty: 90 RF: 3 hydrochlorothiazide 25 mg tablet 25 mg PO DAILY Qty: 90 RF: 3 lisinopril 40 mg tablet 40 mg PO DAILY Qty: 90 RF: 3 metoprolol tartrate 100 mg tablet 100 mg PO BID Qty: 180 RF: 3 spironolactone 25 mg tablet 25 mg PO DAILY Qty: 30 RF: 5 Primary Care Provider: Kim Haider NP Referrals: Kim Haider NP, SPECIALTY DEVELOPMENT CONSULTANT-C [Primary Care Provider] - 5-7 Days Disposition Disposition: Home, Self Care
--- NOTE | 2021-04-05 22:25 | RAD_ITS ---
STUDY: X-RAY CHEST REASON FOR EXAM: Male, 35 years old. cough TECHNIQUE: Single AP portable view of the chest. COMPARISON: 12/24/2016 FINDINGS: The lungs are clear and expanded. There is no demonstrated pleural abnormality. Normal size heart. Normal mediastinum and anup. Normal visualized pulmonary arteries. Normal visualized aortic arch and descending thoracic aorta. Normal visualized thoracic spine. Normal visualized ribs, clavicles, and shoulders. There is no demonstrated abnormality of the visualized soft tissue structures of the upper abdomen. RAD/Chest 1 View (Portable) IMPRESSION: Normal x-ray examination of the chest. Electronically Signed: Glen Ca DO at 22:58 EDT Tel , Service support ,
[2021-04-05] MEDS: Ketorolac 30 MG/ML Syringe IV (22:28)
[2021-04-05 22:29] LABS: Absolute Lymphocyte Count 0.96 X10^3/uL (0.83-4.51); Absolute Neutrophil Count 2.5 X10^3/uL (2.0-7.7); Basophil# 0.01 X10^3/uL; Basophil% 0.2 % (0-1); Eosinophil# 0.01 X10^3/uL; Eosinophils% 0.2 % (0-5); Hematocrit 42.3 % (40-54); Hemoglobin 14.1 g/dL (13.0-16.5); Lymphocyte # 0.96 X10^3/ul (0.83-4.51); Lymphocyte % 23.9 % (19-41); Mean Corp Hgb Conc 33.3 g/dL (32-36); Mean Corpuscular Hgb 29.2 pg (27.0-32.0); Mean Corpuscular Volume 87.6 fL (80-94); Mean Platelet Vol. 11.7 fl (6.2-12.0); Monocyte# 0.47 X10^3/uL; Monocyte% 11.7 % (0-10); NRBC Flagged by Analyzer 0 % (0-5); Neutrophil # 2.54 X10^3/uL (2.7-7.7); Neutrophil % 63.5 % (47-70); Platelet Count 120 K/mm3 (150-450); RBC Distribution Width CV 12.4 % (11.6-14.6); RBC Distribution Width SD 39.8 fl (35.1-43.9); Red Blood Count 4.83 M/mm3 (4.6-6.2)
[2021-04-05 22:30] VITALS: BP 125/87; BP 139/82; BP 145/97; PULSE 107; PULSE 113; PULSE 117
[2021-04-05 22:34] VITALS: BP 139/82; PULSE 114; RESP 18; TEMP 37.1; O2SAT 96
--- NOTE | 2021-04-05 22:37 | NURSING ---
patient declined a second attempt for blood draw and discussed need for full exam and he states he is aware and wants to leave. Devora Crowell RN gave him AMA form and Dr Rahman aware
[2021-04-05 22:52] LABS: Anion Gap 6 (5-15); BUN 24 mg/dL (7-18); BUN/Creat Ratio 15.5 RATIO (10-20); Calcium,Total 8.2 mg/dL (8.5-10.1); Chloride 99 mmol/L (98-107); Creatinine, Serum 1.55 mg/dL (0.70-1.30); EST Glomerular Filtration Rate 55 mL/min (>60); Est Glom Filt Rate - Afr Amer 67 mL/min (>60); Estimated Creatinine Clearance 69.99 ml/min; Glucose 104 mg/dL (74-106); Potassium 3.9 mmol/L (3.5-5.1); Sodium Level 135 mmol/L (136-145)
[2021-04-05 23:46] VITALS: BP 124/77; PULSE 18; RESP 17; TEMP 37.1; O2SAT 97
[2021-04-06 00:15] LABS: D-Dimer Quantitative (DVT/PE) <= 0.27 FEU/ug/m (0.27-0.49)
== END 2021-04-06 00:11 | disposition home or self-care (01) ==
PROVIDERS: Emergency Provider Emergency Medicine; PCP Nurse Practitioner
DX: U07.1 COVID-19 (principal); I10 Essential (primary) hypertension; E66.9 Obesity, unspecified; Q61.3 Polycystic kidney, unspecified; Z79.899 Other long term (current) drug therapy
CPT/HCPCS: 71045; 80048; 84484; 85025; 85379; 93005; 96361; 96374; 99284; J7030; A4216

== ENCOUNTER 2021-04-09 15:24 | Emergency (ER) | payer OTHER, SELFPAY ==
[2021-04-09 15:26] VITALS: BP 156/106; PULSE 105; RESP 17; TEMP 36.8; O2SAT 97; BMI 33.7
[2021-04-09 15:38] VITALS: BP 156/106; PULSE 105; RESP 17; TEMP 36.8; O2SAT 97
[2021-04-09 15:39] VITALS: O2SAT 97
--- NOTE | 2021-04-09 16:24 | EKG12_ITS ---
Test Reason : Blood Pressure : / mmHG Vent. Rate : 103 BPM Atrial Rate : 103 BPM P-R Int : 172 ms QRS Dur : 092 ms QT Int : 326 ms P-R-T Axes : 021 002 056 degrees QTc Int : 427 ms Sinus tachycardia Otherwise normal ECG Confirmed by UBALDO RIVER, DARRYL ([id number]), scientific publications editor SALOMON WILLIAMSON ([id number]) on 04/12/2021 9:26:03 AM Referred By: JERRICA Confirmed By:RAE CONNER MD
--- NOTE | 2021-04-09 16:46 | EX.ED.DYSGE1 ---
HPI History of Present Illness Chief Complaint: Shortness of Breath Informant: patient Narrative Narrative: Patient is a 35-year-old male past medical history of hypertension who presents to the emergency department for shortness of breath. He was diagnosed with Covid approximately 10 days ago. He states that he feels like he was generally improving until today shortness of breath became worse. He has been constantly coughing. He has been having vomiting and diarrhea. Is been having body aches as well as headache. He has been having intermittent fevers and chills. He has been treat himself at home with ibuprofen and Tylenol which has been helping well. He denies any significant chest pain. No leg swelling or calf pain. No abdominal pain or back pain. [facility] Medical History Essential (primary) hypertension High-renin essential hypertension Malignant hypertension Obesity Polycystic kidney Polycystic kidney disease Home Medications amlodipine 10 mg tablet 10 mg PO DAILY #90 tab 06/01/20 [Rx Last Taken Unknown] hydrochlorothiazide 25 mg tablet 25 mg PO DAILY #90 tab 06/01/20 [Rx Last Taken Unknown] lisinopril 40 mg tablet 40 mg PO DAILY #90 tab 06/01/20 [Rx Last Taken Unknown] metoprolol tartrate 100 mg tablet 100 mg PO BID #180 tab 06/01/20 [Rx Last Taken Unknown] spironolactone 25 mg tablet 25 mg PO DAILY #30 tab 03/11/21 [Rx Last Taken Unknown] Allergy/AdvReac Type Severity Reaction Status Date / Time No Known Allergies Allergy Verified 04/09/21 17:01 Surgical History H/O hand surgery Social History Smoking Status: Never smoker ROS ROS ED Constitutional Constitutional ED: Reports fever(s) Eyes Eyes: Denies change in vision ENT ENT ED: Denies epistaxis or rhinorrhea Cardiovascular Cardiovascular: Denies chest pain or palpitations Respiratory/Chest Respiratory/Chest: Reports cough and dyspnea Gastrointestinal Gastrointestinal: Reports diarrhea, nausea and vomiting; Denies abdominal pain Genitourinary Genitourinary ED: Denies dysuria, hematuria or urinary frequency Musculoskeletal Musculoskeletal: Reports myalgias; Denies back pain or neck pain Integumentary Denies rash Neurologic Neurologic: Reports headache(s); Denies dizziness or weakness EXAM Physical Exam Const Vital Signs: 04/09/21 15:26 04/09/21 15:38 04/09/21 17:01 Temperature 98.3 F 98.3 F Temperature Source Temporal Temporal Pulse Rate 105 H 105 H Respiratory Rate 17 17 Respiratory Effort Normal Respiratory Depth Normal Respiratory Pattern Normal Blood Pressure 156/106 H 156/106 H Blood Pressure Mean 122 122 Pulse Ox 97 97 Oxygen Delivery Method Room Air Room Air Room Air 04/09/21 18:06 04/09/21 19:10 Temperature Temperature Source Pulse Rate 87 88 Respiratory Rate 16 18 Respiratory Effort Respiratory Depth Respiratory Pattern Blood Pressure 142/88 H 143/79 H Blood Pressure Mean 106 Pulse Ox 99 98 Oxygen Delivery Method Positive well nourished and well developed General Appearance ED: well developed and NAD HEENT Reports normocephalic and head/scalp atraumatic Eyes PERRL and EOMs intact bilaterally Neck supple Chest Wall inspection of chest normal Resp normal respiratory effort and clear to auscultation bilaterally Auscultation: Negative for rales, rhonchi or wheezes Cardio regular rate, regular rhythm and no murmurs GI normal to inspection, nondistended, normoactive bowel sounds and non-tender Palpation: soft; Negative for guarding or rebound tenderness present Extremity normal to inspection General Extremety ED: Negative for edema or tenderness General Extremity: Negative for edema Neuro Sensorium / Orientation: alert Motor Exam: strength 5/5 throughout Psych mental status grossly normal Skin no rashes or lesions noted MDM MDM MDM Narrative Medical decision making narrative: Patient presents to the emergency department for increasing shortness of breath with being Covid positive. Patient was seen a few days prior for lightheaded he had a large work-up performed. Will repeat chest x-ray, basic lab work and EKG at this time. Ambulatory pulse ox is at 93%. He is resting comfortably on my examination. Patient's lab work showed an elevated D-dimer which it was not on previous lab work [address] scan was obtained which did show patchy infiltrates consistent with Covid. No evidence of DVT/PE. He has not had any oxygen desaturations throughout ED stay. This time he is stable for discharge. Will recommend symptomatic treatment. He is advised to get a home pulse oximeter. Return precautions are reviewed with him. He understands and is agreeable this plan. All questions were answered. Lab Data Labs: Laboratory Results - last 24 hr 04/09/21 04/09/21 04/09/21 16:57 16:57 16:57 WBC 6.7 RBC 4.89 Hgb 14.2 Hct 42.4 MCV 86.7 MCH 29.0 MCHC 33.5 RDW Std Deviation 40.0 RDW Coeff of Maureen 12.6 Plt Count 148 L MPV 11.3 Immature Gran % (Auto) 0.300 Neut % (Auto) 73.5 H Lymph % (Auto) 18.0 L [place] % (Auto) 7.6 Eos % (Auto) 0.3 Baso % (Auto) 0.3 Absolute Neuts (auto) 4.9 Absolute Lymphs (auto) 1.21 Nucleated RBC % 0 D-Dimer Quant (PE/DVT) 0.84 H* Sodium 134 L Potassium 4.4 Chloride 100 Carbon Dioxide 29.0 Anion Gap 5 BUN 16 Creatinine 1.09 Estim Creat Clear Calc 99.53 Est GFR (MDRD) Af Amer 100 Est GFR (MDRD) Non-Af 83 BUN/Creatinine Ratio 14.7 Glucose 89 Calcium 8.7 Troponin I High Sens 9.6 Radiography Diagnostic Testing: Radiology Impression Chest X-Ray 04/09/21 17:05 IMPRESSION: No acute cardiopulmonary disease or interval change Electronically Signed: Boby Edwards DO at 17:19 EDT Tel [phone], Service support , Chest CTA 04/09/21 17:42 IMPRESSION: 1. No evidence of pulmonary embolus. 2. No aortic dissection or aneurysm. 3. Borderline cardiomegaly. 4. Patchy nodular infiltrates throughout both lungs. These findings are compatible with but atypical for COVID 19 pneumonia particularly in light of the mediastinal lymphadenopathy. These were not visualized on the earlier chest film. Electronically Signed: Boby Edwards DO at 18:50 EDT Tel [phone], Service support , EKG Initial EKG: Attestation: I personally reviewed and interpreted this EKG as follows: (Rate of 103 bpm in sinus tachycardia. Normal intervals. Normal axis. There are some nonspecific ST changes especially in the V3 and V1. This is similar to previous EKG performed on April 05. No T wave abnormalities.) Discharge Plan Triage Chief Complaint: Shortness of Breath ED Provider: Ryan Swenson Dx/Rx/DC Orders Clinical Impression: COVID-19, Dyspnea Instructions: Coronavirus Disease 2019 (COVID-19): Caring for Yourself or Others, COVID-19: Lying in a Prone Position (Proning) Prescriptions: No Action amlodipine 10 mg tablet 10 mg PO DAILY Qty: 90 RF: 3 hydrochlorothiazide 25 mg tablet 25 mg PO DAILY Qty: 90 RF: 3 lisinopril 40 mg tablet 40 mg PO DAILY Qty: 90 RF: 3 metoprolol tartrate 100 mg tablet 100 mg PO BID Qty: 180 RF: 3 spironolactone 25 mg tablet 25 mg PO DAILY Qty: 30 RF: 5 Primary Care Provider: Kim Haider NP Referrals: Kim Haider NP, [facility] [employer] [facility] [Primary Care Provider] - 1 Week Disposition Disposition: Home, Self Care Discharge Date/Time: 04/09/21 19:11
[2021-04-09 17:01] VITALS: O2SAT 97
--- NOTE | 2021-04-09 17:05 | RAD_ITS ---
STUDY: X-RAY CHEST REASON FOR EXAM: Male, 35 years old. Worsening shortness of breath. COVID 19 positive. TECHNIQUE: Single AP portable view of the chest. COMPARISON: 04/05/2021. FINDINGS: The lungs are clear and expanded. There is no demonstrated pleural abnormality. Normal size heart. Normal mediastinum and anup. Normal visualized pulmonary arteries. Normal visualized aortic arch and descending thoracic aorta. Normal visualized thoracic spine. Normal visualized ribs, clavicles, and shoulders. There is no demonstrated abnormality of the visualized soft tissue structures of the upper abdomen. RAD/Chest 1 View (Portable) IMPRESSION: No acute cardiopulmonary disease or interval change Electronically Signed: Boby Edwards DO at 17:19 EDT Tel [phone], Service support ,
[2021-04-09 17:18] LABS: Absolute Lymphocyte Count 1.21 X10^3/uL (0.83-4.51); Absolute Neutrophil Count 4.9 X10^3/uL (2.0-7.7); Basophil# 0.02 X10^3/uL; Basophil% 0.3 % (0-1); Eosinophil# 0.02 X10^3/uL; Eosinophils% 0.3 % (0-5); Hematocrit 42.4 % (40-54); Hemoglobin 14.2 g/dL (13.0-16.5); Lymphocyte # 1.21 X10^3/ul (0.83-4.51); Mean Corp Hgb Conc 33.5 g/dL (32-36); Mean Corpuscular Volume 86.7 fL (80-94); Mean Platelet Vol. 11.3 fl (6.2-12.0); Monocyte# 0.51 X10^3/uL; Monocyte% 7.6 % (0-10); NRBC Flagged by Analyzer 0 % (0-5); Neutrophil # 4.93 X10^3/uL (2.7-7.7); Neutrophil % 73.5 % (47-70); Platelet Count 148 K/mm3 (150-450); RBC Distribution Width CV 12.6 % (11.6-14.6); Red Blood Count 4.89 M/mm3 (4.6-6.2); White Blood Count 6.7 K/mm3 (4.4-11.0)
[2021-04-09 17:40] LABS: Anion Gap 5 (5-15); BUN 16 mg/dL (7-18); BUN/Creat Ratio 14.7 RATIO (10-20); Calcium,Total 8.7 mg/dL (8.5-10.1); Chloride 100 mmol/L (98-107); Creatinine, Serum 1.09 mg/dL (0.70-1.30); D-Dimer Quantitative (DVT/PE) 0.84 FEU/ug/m (0.27-0.49); EST Glomerular Filtration Rate 83 mL/min (>60); Est Glom Filt Rate - Afr Amer 100 mL/min (>60); Estimated Creatinine Clearance 99.53 ml/min; Glucose 89 mg/dL (74-106); Potassium 4.4 mmol/L (3.5-5.1); Sodium Level 134 mmol/L (136-145); Troponin-I HS 9.6 pg/mL (3.0-78.5)
--- NOTE | 2021-04-09 17:42 | CT_ITS ---
STUDY: CTA CHEST REASON FOR EXAM: Male, 35 years old. No evidence of breath. Elevated d-dimer. COVID 19 positive. History of polycystic kidney disease. RADIATION DOSAGE (If Supplied By Facility): CTDIvol = ( 11.36 ) mGy, DLP = ( 507.47 ) mGycm TECHNIQUE: The examination was performed with the intravenous administration of IV 100mL [id number]. Post-processing of the angiographic images was performed, with multiplanar reformation and 3D reconstruction. Individualized dose optimization techniques were used for this CT. COMPARISON: Chest, 04/09/2021. FINDINGS: The colon Normal enhancement of the bilateral peripheral pulmonary arteries. There is no demonstrated pulmonary embolism. Normal thoracic aorta and visualized great vessels. There is no demonstrated aortic dissection. The heart is borderline enlarged. Normal pericardium. There is evidence of paratracheal, precarinal and subcarinal lymphadenopathy. Normal hilar regions. Normal visualized trachea and bronchi. The lungs are well expanded. There is patchy groundglass infiltrates throughout both lungs in a somewhat nodular configuration. This is most marked at the lung bases. Normal pleura. Normal chest wall structures. Normal osseous structures. Normal visualized upper abdomen. CT/CTA Chest W/WO Contrast IMPRESSION: 1. No evidence of pulmonary embolus. 2. No aortic dissection or aneurysm. 3. Borderline cardiomegaly. 4. Patchy nodular infiltrates throughout both lungs. These findings are compatible with but atypical for COVID 19 pneumonia particularly in light of the mediastinal lymphadenopathy. These were not visualized on the earlier chest film. Electronically Signed: Boby Edwards DO at 18:50 EDT Tel [phone], Service support ,
[2021-04-09 18:06] VITALS: BP 142/88; PULSE 87; RESP 16; O2SAT 99
[2021-04-09 19:10] VITALS: BP 143/79; PULSE 88; RESP 18; O2SAT 98
== END 2021-04-09 19:11 | disposition home or self-care (01) ==
PROVIDERS: Emergency Provider Emergency Medicine; PCP Nurse Practitioner
DX: U07.1 COVID-19 (principal); I10 Essential (primary) hypertension; E66.9 Obesity, unspecified; Z79.899 Other long term (current) drug therapy
CPT/HCPCS: 71045; 71275; 80048; 84484; 85025; 85379; 93005; 99283; Q9967

== ENCOUNTER → 2021-08-26 21:36 | Outpatient (CLI) | payer OTHER, SELFPAY ==
[2021-08-26 22:02] LABS: ALB/GLOB Ratio 1.1 RATIO (0.9-2.4); AST(SGOT) 23 U/L (15-37); Absolute Lymphocyte Count 2.31 X10^3/uL (0.83-4.51); Absolute Neutrophil Count 5.3 X10^3/uL (2.0-7.7); Alanine Aminotransfer ALT/SGPT 39 U/L (16-61); Albumin, Serum 4.3 g/dL (3.2-5.0); Alkaline Phosphatase 62 U/L (45-117); Anion Gap 7 (5-15); BUN 23 mg/dL (7-18); Basophil# 0.07 X10^3/uL; Basophil% 0.8 % (0-1); Calcium,Total 9.7 mg/dL (8.5-10.1); Chloride 99 mmol/L (98-107); Cholesterol 179 mg/dL (200); Creatinine, Serum 1.15 mg/dL (0.70-1.30); EST Glomerular Filtration Rate 77 mL/min (>60); Eosinophils% 2.4 % (0-5); Est Glom Filt Rate - Afr Amer 94 mL/min (>60); Glucose 91 mg/dL (74-106); Hematocrit 46.4 % (40-54); Hemoglobin 15.3 g/dL (13.0-16.5); High Density Lipoprotein 40 mg/dL; Lymphocyte # 2.31 X10^3/ul (0.83-4.51); Lymphocyte % 27.3 % (19-41); Mean Corpuscular Hgb 28.8 pg (27.0-32.0); Mean Corpuscular Volume 87.2 fL (80-94); Mean Platelet Vol. 10.8 fl (6.2-12.0); Monocyte# 0.61 X10^3/uL; Monocyte% 7.2 % (0-10); NRBC Flagged by Analyzer 0 % (0-5); Neutrophil # 5.25 X10^3/uL (2.7-7.7); Neutrophil % 62.1 % (47-70); Platelet Count 245 K/mm3 (150-450); Potassium 4.5 mmol/L (3.5-5.1); Protein, Total 8.3 g/dL (6.4-8.2); RBC Distribution Width CV 12.6 % (11.6-14.6); RBC Distribution Width SD 40.2 fl (35.1-43.9); Red Blood Count 5.32 M/mm3 (4.6-6.2); Sodium Level 136 mmol/L (136-145); Triglycerides 144 mg/dL; Very Low Density Lipoprotein 29 mg/dL (5-40); White Blood Count 8.5 K/mm3 (4.4-11.0)
== END ==
PROVIDERS: PCP Nurse Practitioner; Referring Provider Nurse Practitioner; Visit Provider Nurse Practitioner
DX: I10 Essential (primary) hypertension (principal)
CPT/HCPCS: 80053; 80061; 85025

== ENCOUNTER → 2022-04-23 | Outpatient (CLI) | payer OTHER, SELFPAY ==
[2022-04-23 23:43] LABS: Absolute Lymphocyte Count 2.45 X10^3/uL (0.83-4.51); Absolute Neutrophil Count 7.2 X10^3/uL (2.0-7.7); Basophil# 0.04 X10^3/uL; Basophil% 0.4 % (0-1); Eosinophil# 0.18 X10^3/uL; Eosinophils% 1.6 % (0-5); Hematocrit 45.8 % (40-54); Hemoglobin 15.5 g/dL (13.0-16.5); Lymphocyte # 2.45 X10^3/ul (0.83-4.51); Mean Corp Hgb Conc 33.8 g/dL (32-36); Mean Corpuscular Hgb 28.9 pg (27.0-32.0); Mean Corpuscular Volume 85.4 fL (80-94); Mean Platelet Vol. 11.3 fl (6.2-12.0); Monocyte# 1.23 X10^3/uL; Monocyte% 11.1 % (0-10); NRBC Flagged by Analyzer 0 % (0-5); Neutrophil # 7.17 X10^3/uL (2.7-7.7); Neutrophil % 64.4 % (47-70); Platelet Count 230 K/mm3 (150-450); RBC Distribution Width CV 13.2 % (11.6-14.6); RBC Distribution Width SD 41.1 fl (35.1-43.9); Red Blood Count 5.36 M/mm3 (4.6-6.2); White Blood Count 11.1 K/mm3 (4.4-11.0)
[2022-04-24 00:14] LABS: ALB/GLOB Ratio 0.8 RATIO (0.9-2.4); AST(SGOT) 28 U/L (15-37); Alanine Aminotransfer ALT/SGPT 46 U/L (16-61); Albumin, Serum 3.8 g/dL (3.2-5.0); Alkaline Phosphatase 62 U/L (45-117); Anion Gap 9 (5-15); BUN 31 mg/dL (7-18); BUN/Creat Ratio 17.2 RATIO (10-20); Calcium,Total 8.9 mg/dL (8.5-10.1); Chloride 98 mmol/L (98-107); EST Glomerular Filtration Rate 46 mL/min (>60); Est Glom Filt Rate - Afr Amer 56 mL/min (>60); Globulin 4.7 g/dL (2.2-4.2); Glucose 96 mg/dL (74-106); Potassium 4.6 mmol/L (3.5-5.1); Protein, Total 8.5 g/dL (6.4-8.2); Sodium Level 133 mmol/L (136-145)
[2022-04-25 16:09] LABS: Endomysial Antibody IgA Negative (Negative)
[2022-04-25 16:20] LABS: Deamidated Gliadin IgA 4 units (0-19); Deamidated Gliadin IgG 2 units (0-19)
[2022-04-25 16:21] LABS: Immunoglobulin A 310 mg/dL (90-386); t-Transglutaminase IgA <2 U/mL (0-3)
== END | disposition home or self-care (01) ==
PROVIDERS: PCP Nurse Practitioner; Visit Provider Nurse Practitioner
DX: R10.30 Lower abdominal pain, unspecified (principal); R19.7 Diarrhea, unspecified
CPT/HCPCS: 80053; 82784; 83516; 85025; 86255

== ENCOUNTER → 2022-07-02 | Outpatient (CLI) | payer OTHER, SELFPAY ==
[2022-07-02 17:55] LABS: Hemoglobin 14.5 g/dL (13.0-16.5); Mean Corp Hgb Conc 34.5 g/dL (32-36); Mean Corpuscular Hgb 29.9 pg (27.0-32.0); Mean Corpuscular Volume 86.6 fL (80-94); Mean Platelet Vol. 10.6 fl (6.2-12.0); Platelet Count 249 K/mm3 (150-450); RBC Distribution Width SD 40.6 fl (35.1-43.9); Red Blood Count 4.85 M/mm3 (4.6-6.2); White Blood Count 7.5 K/mm3 (4.4-11.0)
[2022-07-02 18:11] LABS: Albumin, Serum 4.2 g/dL (3.2-5.0); BUN 19 mg/dL (7-18); BUN/Creat Ratio 16.4 RATIO (10-20); Calcium,Total 9.2 mg/dL (8.5-10.1); Chloride 104 mmol/L (98-107); Creatinine, Serum 1.16 mg/dL (0.70-1.30); EST Glomerular Filtration Rate 76 mL/min (>60); Est Glom Filt Rate - Afr Amer 92 mL/min (>60); Glucose 88 mg/dL (74-106); Phosphorus 3.2 mg/dL (2.5-4.9); Potassium 3.6 mmol/L (3.5-5.1); Sodium Level 136 mmol/L (136-145)
[2022-07-02 18:29] LABS: Protein, Urine (Random) < 6.0 mg/dL (<11.9)
[2022-07-02 18:41] LABS: Vitamin D,25 Hydroxy 39.1 ng/mL
[2022-07-03 08:55] LABS: PTHIN 55.5 pg/mL (18.4-80.1)
== END | disposition home or self-care (01) ==
LOC: MTLAB 16:36
PROVIDERS: PCP Nurse Practitioner; Referring Provider Internal Medicine Nephrology; Visit Provider Internal Medicine Nephrology
DX: N18.2 Chronic kidney disease, stage 2 (mild) (principal)
CPT/HCPCS: 36415; 80069; 82306; 82570; 83970; 84156; 85027

== ENCOUNTER → 2023-10-29 | Outpatient (CLI) | payer OTHER, SELFPAY ==
[2023-10-29 17:44] LABS: Anion Gap 6 (5-15); BUN 31 mg/dL (7-18); BUN/Creat Ratio 28.2 RATIO (10-20); Calcium,Total 9.2 mg/dL (8.5-10.1); Chloride 104 mmol/L (98-107); EST Glomerular Filtration Rate 81 mL/min (>60); Est Glom Filt Rate - Afr Amer 97 mL/min (>60); Glucose 94 mg/dL (74-106); Potassium 3.6 mmol/L (3.5-5.1); Sodium Level 136 mmol/L (136-145)
== END | disposition home or self-care (01) ==
PROVIDERS: PCP Nurse Practitioner; Visit Provider Internal Medicine Cardiovascular Disease
DX: I10 Essential (primary) hypertension (principal)
CPT/HCPCS: 36415; 80048; 83735

== ENCOUNTER → 2024-06-28 | Outpatient (CLI) | payer OTHER, SELFPAY ==
[2024-06-28 17:46] LABS: ALB/GLOB Ratio 1.1 RATIO (0.9-2.4); AST(SGOT) 25 U/L (15-37); Alanine Aminotransfer ALT/SGPT 41 U/L (16-61); Albumin, Serum 4.2 g/dL (3.2-5.0); Alkaline Phosphatase 90 U/L (45-117); Anion Gap 8 (5-15); BUN 24 mg/dL (7-18); BUN/Creat Ratio 20.2 RATIO (10-20); Calcium,Total 9.6 mg/dL (8.5-10.1); Chloride 101 mmol/L (98-107); Creatinine, Serum 1.19 mg/dL (0.70-1.30); EST Glomerular Filtration Rate 73 mL/min (>60); Est Glom Filt Rate - Afr Amer 89 mL/min (>60); Globulin 3.8 g/dL (2.2-4.2); Glucose 94 mg/dL (74-106); Magnesium 2.1 mg/dL (1.6-2.6); Potassium 4.1 mmol/L (3.5-5.1); Sodium Level 136 mmol/L (136-145)
== END | disposition home or self-care (01) ==
LOC: LAB 16:17
PROVIDERS: PCP Nurse Practitioner; Referring Provider Nurse Practitioner Family; Visit Provider Nurse Practitioner Family
DX: I10 Essential (primary) hypertension (principal)
CPT/HCPCS: 36415; 80053; 83735

== ENCOUNTER → 2025-08-10 | Outpatient (CLI) | payer OTHER, SELFPAY ==
[2025-08-10 17:37] LABS: Hematocrit 45.7 % (40-54); Hemoglobin 15.8 g/dL (13.0-16.5); Immature Granulocytes Count 0.030 X10^3/uL (0.0-0.0); Mean Corp Hgb Conc 34.6 g/dL (32-36); Mean Corpuscular Volume 85.1 fL (80-94); Mean Platelet Vol. 11.0 fl (6.2-12.0); NRBC Flagged by Analyzer 0 % (0-5); Platelet Count 271 K/mm3 (150-450); RBC Distribution Width CV 12.8 % (11.6-14.6); RBC Distribution Width SD 39.8 fl (35.1-43.9); Red Blood Count 5.37 M/mm3 (4.6-6.2); White Blood Count 8.0 K/mm3 (4.4-11.0)
--- OUTSIDE RECORDS SUMMARY | 2025-08-10 18:17 | XMS RPT_ITS | CCD ---
Author Organization [facility] Inform ion Partnership [facility] Care Team Providers Care Inverted Block Operator Name Role Phone Vitaly COMMERCIAL MANAGEMENT ACCOUNTANT, COMMERCIAL MANAGEMENT ACCOUNTANT-C Kim Primary Care Provider Vitaly COMMERCIAL MANAGEMENT ACCOUNTANT, COMMERCIAL MANAGEMENT ACCOUNTANT-C Kim Referring Provider [phone] Dr. Dean Reynolds Attending Provider Vitaly COMMERCIAL MANAGEMENT ACCOUNTANT, Kim Primary Care Unavailable Vitaly COMMERCIAL MANAGEMENT ACCOUNTANT, Kim Referring Unavailable Trice COMMERCIAL MANAGEMENT ACCOUNTANT, Donis Esposito Attending Unavailable Vitaly COMMERCIAL MANAGEMENT ACCOUNTANT, Kim Primary Care Unavailable Trice COMMERCIAL MANAGEMENT ACCOUNTANT, Donis Esposito Attending Unavailable Roof COMMERCIAL MANAGEMENT ACCOUNTANT, Donis Esposito Referring Unavailable Vitaly COMMERCIAL MANAGEMENT ACCOUNTANT, Kim Primary Care Unavailable Dean Reynolds Attending Unavailable Vitaly COMMERCIAL MANAGEMENT ACCOUNTANT, Kim Primary Care Unavailable Vitaly COMMERCIAL MANAGEMENT ACCOUNTANT, Kim Referring Unavailable Dean Reynolds Attending Unavailable Medications Current Medications Medication Drug Class(es) Dates Sig (Normalized) Sig (Original) amLODIPine 10 mg oral tablet (9 sources) Dihydropyridine Calcium Channel Gerber Start: 05-29-2020 End: 10-29-2023 take 10 mg by mouth once daily Amlodipine Active 10 MG PO DAILY 30 October 29, 2023 4:04pm carvedilol 25 mg oral tablet (4 sources) alpha-Adrenergic Gerber, beta-Adrenergic Gerber Start: 10-29-2023 take 25 mg by mouth twice daily at mealtime Carvedilol Active 25 MG PO TWICE A DAY 180 October 29, 2023 4:13pm must administer with a meal/food Start: 10-08-2022 End: 10-29-2023 take 1 tablet by mouth twice daily at mealtime Carvedilol (Coreg) 12.5 mg tablet Discontinued 12.5 MG PO TWICE A DAY 60 October 29, 2023 4:04pm October 29, 2023 4:15pm must administer with a meal/food hydroCHLOROthiazide 25 mg oral tablet (11 sources) Thiazide Diuretic Start: 05-29-2020 End: 10-29-2023 take 25 mg by mouth once daily Hydrochlorothiazide Active 25 MG PO DAILY October 29, 2023 4:04pm Start: 07-04-2014 End: 05-29-2020 take 12.5 mg by mouth once daily Hydrochlorothiazide Discontinued 12.5 MG PO DAILY July 04, 2014 12:00am May 29, 2020 12:47pm lisinopril 40 mg oral tablet (11 sources) Angiotensin Converting Enzyme Inhibitor Start: 05-29-2020 End: 10-29-2023 take 40 mg by mouth once daily Lisinopril Active 40 MG PO DAILY October 29, 2023 4:04pm Start: 07-04-2014 End: 05-29-2020 take 40 mg by mouth once daily Lisinopril Discontinued 40 MG PO DAILY July 04, 2014 12:00am May 29, 2020 12:47pm spironolactone 50 mg oral tablet (8 sources) Aldosterone Antagonist Start: 10-29-2023 take 50 mg by mouth once daily Spironolactone Active 50 MG PO DAILY October 29, 2023 4:14pm Start: 03-11-2021 End: 10-29-2023 take 25 mg by mouth once daily Spironolactone Discontinued 25 MG PO DAILY October 29, 2023 4:05pm October 29, 2023 4:15pm Completed/Discontinued Medications Medication Drug Class(es) Dates Sig (Normalized) Sig (Original) amoxicillin 875 mg oral tablet (2 sources) Penicillin-class Antibacterial Start: 06-01-2020 End: 07-09-2020 take 875 mg by mouth twice daily Amoxicillin Discontinued 875 MG PO TWICE A DAY May 31, 2020 11:00pm July 09, 2020 4:03pm aspirin 81 mg chewable tablet (2 sources) Platelet Aggregation Inhibitor, Nonsteroidal Anti-inflammatory Drug Start: 05-29-2020 End: 02-26-2021 take 81 mg by mouth once daily Aspirin Discontinued 81 MG PO DAILY@0800 May 28, 2020 11:00pm February 26, 2021 3:06pm ciprofloxacin 500 mg oral tablet (2 sources) Quinolone Antimicrobial Start: 04-23-2022 End: 09-18-2022 take 1 tablet by mouth twice daily Ciprofloxacin Hcl (Cipro) 500 mg tablet Discontinued 500 MG PO TWICE A DAY 14 April 22, 2022 11:00pm September 18, 2022 3:39pm metoprolol tartrate 100 mg oral tablet (9 sources) beta-Adrenergic Gerber Start: 06-13-2015 End: 10-29-2023 take 100 mg by mouth twice daily Metoprolol Tartrate Discontinued 100 MG PO TWICE A DAY 60 May 28, 2020 11:00pm June 01, 2020 3:09pm metroNIDAZOLE 250 mg oral tablet (2 sources) Nitroimidazole Antimicrobial Start: 04-23-2022 End: 05-03-2022 take 250 mg by mouth three times daily Metronidazole Discontinued 250 MG PO THREE TIMES A DAY 30 April 22, 2022 11:00pm May 02, 2022 11:05pm Problems Problem Classification Problem Date Documented Da te Episodic/Chronic Abdominal pain (2 sources) Lower abdominal pain; Translations: [Lower abdominal pain, unspecified] 04-23-2022 Episodic Appendicitis and other appendiceal conditions (2 sources) Appendicitis; Translations: [Unspecified appendicitis] 05-27-2020 Episodic Conditions associated with dizziness or vertigo (2 sources) Dizziness; Translations: [Dizziness and giddiness] 02-26-2021 Episodic Essential hypertension (10 sources) Essential hypertension; Translations: [Essential (primary) hypertension] Onset: 07-19-2024 02-26-2021 Chronic 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; Translations: [Polycystic kidney, unspecified] 03-22-2021 Chronic Headache; including migraine (2 sources) Headache; Translations: [Headache] 02-26-2021 Episodic Hypertension with complications and secondary hypertension (2 sources) Hypertensive urgency ; Translations: [Hypertensive urgency] 02-26-2021 Chronic Other gastrointestinal disorders (2 sources) Diarrhea; Translations: [Diarrhea, unspecified] 04-23-2022 Episodic Other lower respiratory disease (2 sources) Dyspnea; Translations: [Dyspnea, unspecified] 04-09-2021 Episodic Otitis media and related conditions (2 sources) Acute right otitis media; Translations: [Otitis media, unspecified, right ear] 02-26-2021 Episodic Residual codes; unclassified (1 source) Hypersomnia, unspecified; Translations: [Hypersomnia, unspecified] Onset: 06-28-2024 Chronic Viral infection (2 sources) Disease caused by 2019-nCoV; Translations: [COVID-19] 04-09-2021 Episodic Results Test Name Value Interpretation Reference Range Facility Cardiology Visit Reporton Cardiology Visit Report [facility] [address] [place] [address] OFFICE VISIT Date of Service: 06/28/24 MR#: [id number] Acct: [id number] Name: CLARK CASTLE Rep #: [id number] : 1985 Provider: ADRIANA abarca Age/Sex: 38/M Location: [facility] Status: Signed HPI HPI History of Present Illness Details: This is a 38-year-old male who presents the office today for a cardiovascular outpatient follow-up. He has a past medical history of hypertension with hypertensive urgency in May 2020 and abnormal ECG with T wave inversions in lead I and aVL noted in May 2020. He denies chest, arm, jaw, or neck discomfort. He denies palpitations. He denies bilateral lower extremity edema. He denies claudication. He denies shortness of breath with activity, shortness of breath at rest, orthopnea, or PND. He denies chronic cough. He denies significant, sudden weight gain. He states lightheadedness with position changes that improved with hydration. He denies dizziness, near-syncope, or syncope. He denies blood in urine, blood in stool, or epistaxis. He denies fever or chills. He denies myalgia. He denies fatigue. His exercise level has remained stable via regularly exercising 1-2 days a week. Intake Vital Signs 10/29/23 16:01 06/28/24 15:28 Height 5 ft 10 in 5 ft 10 in Weight: 242 lb 249 lb BMI 34.7 35.7 BP 152/98 H 142/90 H Blood Pressure Location Lt brachial Lt brachial Position Sitting Sitting Respiration 16 16 Pulse 75 64 Pulse Source Monitor NIBP Intake Visit Reasons: 8 m fu General Teller Required: No Is patient in pain?: No Allergies No Known Allergies Allergy (Verified 06/28/24 15:35) Medications ???Medication ???Instructions ???Recorded ???Confirmed ???Type amlodipine 10 mg tablet 10 mg PO DAILY #90 tabs 06/28/24 06/28/24 Rx carvedilol 25 mg tablet 25 mg PO BID #180 tabs 06/28/24 06/28/24 Rx hydrochlorothiazide 25 mg tablet 25 mg PO DAILY #90 tabs 06/28/24 06/28/24 Rx lisinopril 40 mg tablet 40 mg PO DAILY #90 tabs 06/28/24 06/28/24 Rx spironolactone 50 mg tablet 50 mg PO DAILY #90 tabs 06/28/24 06/28/24 Rx Ejection fraction %: 60 Have you fallen in the past year?: No PFSH Medical History High-renin essential hypertension Malignant hypertension Obesity Essential (primary) hypertension Polycystic kidney disease Polycystic kidney Surgical History Hx of appendectomy H/O hand surgery Family History (Updated 06/28/24 @ 16:04 by Donis Carnes COMMERCIAL MANAGEMENT ACCOUNTANT, COMMERCIAL MANAGEMENT ACCOUNTANT-C) Father Heart disease Hypertension Mother Kidney disease Social History (Updated 06/28/24 @ 15:36 by Ayanna Oseguera) Smoking Status: Never smoker alcohol intake: current alcohol intake frequency: a few times a week substance use type: does not use caffeine: Yes Type: coffee Number of servings: 3 ROS Const Const: Positive for fatigue (Has been feeling tired and rundown but does admit to being busy); Negative for weakness Eyes Eyes: Negative for change in vision ENT ENT: Negative for dizziness, Nosebleed/epistaxis or balance problems Cardio Chest Pain: No Palpitations: No Edema: None Muscle aches with walking: None Resp Respiratory: Positive for SOB with activity (Out of shape, with stairs); Negative for SOB at rest, SOB orthopnea SOB lying down, Cough or paroxysmal nocturnal dyspnea GI GI: Negative nausea, heartburn or black,tarry stools : Negative for hematuria Musc Musc: Negative for muscle aches/ myalgia, muscle weakness, joint pain or balance problems Skin Skin: Negative rash Neuro Neuro: Negative for dizziness, lightheadedness, near syncope, syncope or weakness Elia Hematologic/Lymphatic : Negative for easy bleeding or easy bruising Endo Endo: Positive for fatigue (Has been feeling tired and rundown but does admit to being busy) Allergy Allergy/Immunology: Negative for rash Cardiology Exam Const Appearance: cooperative, healthy appearing, comfortable and no acute distress Nutritional Appearance: well nourished and obese Orientation: alert, awake and oriented x3 Head Head: normal to inspection Ears: hearing grossly normal bilaterally Nose: external nose normal Face and Sinus: face symmetric Mouth: moist mucous membranes Eyes General: appearance normal, both eyes and all related structures Eyelids: eyelids normal EOM: EOM intact bilaterally Neck Neck: normal visual inspection and no JVD Carotids: normal carotid upstroke Chest Chest inspection: normal inspection of the chest, symmetric chest movement and normal respiratory effort; Negative cough Auscultation: Bilateral: Clear to Auscultation Cardio Rate: regular rate Rhythm: regular rhythm Heart sounds: S1 normal (more content not included)... Normal [facility] Comprehensive Metabolic Prof ilon 06-28-2024 Albumin [Mass/Vol] 4.2 g/dL Normal 3.2-5.[address] [facility] Comment on above: Performed By: #### L 500.4050, L501.5200 #### [facility] [address] [place], [address] Albumin/Globulin [Mass ratio] 1.1 {ratio} Normal 0.9-2.4 [facility] Comment on above: Performed By: #### L 500.4050, L501.5200 #### [facility] [address] [place], [address] ALK P 90 U/L Normal 45-117 [facility] Comment on above: Performed By: #### L 500.4050, L501.5200 #### [facility] [address] [place], [address] ALT [Catalytic activity/Vol] 41 U/L Normal 16-61 [facility] Comment on above: Performed By: #### L 500.4050, L501.5200 #### [facility] [address] [place], [address] AST [Catalytic activity/Vol] 25 U/L Normal 15-37 [facility] Comment on above: Result Comment: Slig ht Hemolysis, Result may be falsely increased. Performed By: #### L 500.4050, L501.5200 #### [facility] [address] [place], [address] Bilirubin [Mass/Vol] 0.30 mg/dL Normal 0.20-1.00 [facility] Comment on above: Result Comment: For patients on eltrombopag therapy, use of Dimension [place] TBIL is not recommended. Performed By: #### L 500.4050, L501.5200 #### [facility] [address] [place], [address] BUN/CRE 20.2 RATIO High 10-20 [facility] Comment on above: Performed By: #### L 500.4050, L501.5200 #### [facility] [address] [place], [address] CA,Total 9.6 mg/dL Normal 8.5-10.1 [facility] Comment on above: Performed By: #### L 500.4050, L501.5200 #### [facility] [address] [place], [address] Chloride [Moles/Vol] 101 mmol/L Normal 98-107 [facility] Comment on above: Performed By: #### L 500.4050, L501.5200 #### [facility] [address] [place], [address] CO2 [Moles/Vol] 27.0 mmol/L Normal 21.0-32.0 [facility] Comment on above: Performed By: #### L 500.4050, L501.5200 #### [facility] [address] [place], [address] Creatinine [Mass/Vol] 1.19 mg/dL Normal 0.70-1.30 [facility] Comment on above: Result Comment: The validity of the calculated GFR GFRAA in patients over 70 years has not been determined. Clinical correlation is essential. Performed By: #### L 500.4050, L501.5200 #### [facility] [address] [place], [address] EST GFR - AA 89 mL/min Normal >60 [facility] Comment on above: Result Comment: Afri can Nicaraguan GFR Calc Performed By: #### L 500.4050, L501.5200 #### [facility] [address] [place], [address] GAP 8 Normal 5-15 [facility] Comment on above: Performed By: #### L 500.4050, L501.5200 #### [facility] [address] [place], [address] GFR/1.73 sq M.predicted among non-blacks MDRD (S/P/Bld) [Vol rate/Area] 73 mL/min/{1.73_m2} Normal >60 [facility] Comment on above: Result Comment: Non- GFR Calc Performed By: #### L 500.4050, L501.5200 #### [facility] [address] [place], [address] Globulin (S) [Mass/Vol] 3.8 g/dL Normal 2.2-4.2 [facility] Comment on above: Performed By: #### L 500.4050, L501.5200 #### [facility] [address] [place], [address] Glucose [Mass/Vol] 94 mg/dL Normal 74-[address] [facility] Comment on above: Performed By: #### L 500.4050, L501.5200 #### [facility] [address] [place], [address] Potassium [Moles/Vol] 4.1 mmol/L Normal 3.5-5.1 [facility] Comment on above: Result Comment: Slig ht Hemolysis, Result may be falsely increased. Performed By: #### L 500.4050, L501.5200 #### [facility] [address] [place], [address] Sodium [Moles/Vol] 136 mmol/L Normal 136-[address] [facility] Comment on above: Performed By: #### L 500.4050, L501.5200 #### [facility] [address] [place], [address] T PROT 8.0 g/dL Normal 6.4-8.2 [facility] Comment on above: Performed By: #### L 500.4050, L501.5200 #### [facility] [address] [place], [address] Urea nitrogen [Mass/Vol] 24 mg/dL High 03-17 [facility] Comment on above: Performed By: #### L 500.4050, L501.5200 #### [facility] [address] [place], [address] Magnesiumon 06-28-2024 Magnesium [Mass/Vol] 2.1 mg/dL Normal 1.6-2.6 [facility] Comment on above: Result Comment: Slig ht Hemolysis, Result may be falsely increased. Performed By: #### L 500.4050, L501.5200 #### [facility] [address] [place], [address] Basic Metabolic Profile (BMP )on 10-29-2023 BUN/CRE 28.2 RATIO High 06-19 [facility] Comment on above: Performed By: #### L 500.2500, L501.5200 #### [facility] [address] [place], [address] CA,Total 9.2 mg/dL Normal 8.5-10.1 [facility] Comment on above: Performed By: #### L 500.2500, L501.5200 #### [facility] [address] [place], [address] Chloride [Moles/Vol] 104 mmol/L Normal 98-107 [facility] Comment on above: Performed By: #### L 500.2500, L501.5200 #### [facility] [address] [place], [address] CO2 [Moles/Vol] 26.0 mmol/L Normal 21.0-32.0 [facility] Comment on above: Performed By: #### L 500.2500, L501.5200 #### [facility] [address] [place], [address] Creatinine [Mass/Vol] 1.10 mg/dL Normal 0.70-1.30 [facility] Comment on above: Result Comment: The validity of the calculated GFR GFRAA in patients over 70 years has not been determined. Clinical correlation is essential. Performed By: #### L 500.2500, L501.5200 #### [facility] [address] [place], [address] EST GFR - AA 97 mL/min Normal >60 [facility] Comment on above: Result Comment: Afri can Nicar[place]uan GFR Calc Performed By: #### L 500.2500, L501.5200 #### [facility] [address] [place], [address] GAP 6 Normal 5-15 [facility] Comment on above: Performed By: #### L 500.2500, L501.5200 #### [facility] [address] [place], [address] GFR/1.73 sq M.predicted among non-blacks MDRD (S/P/Bld) [Vol rate/Area] 81 mL/min/{1.73_m2} Normal >60 [facility] Comment on above: Result Comment: Non- GFR Calc Performed By: #### L 500.2500, L501.5200 #### [facility] [address] [place], [address] Glucose [Mass/Vol] 94 mg/dL Normal 74-[address] [facility] Comment on above: Performed By: #### L 500.2500, L501.5200 #### [facility] [address] [place], [address] Potassium [Moles/Vol] 3.6 mmol/L Normal 3.5-5.1 [facility] Comment on above: Performed By: #### L 500.2500, L501.5200 #### [facility] [address] [place], [address] Sodium [Moles/Vol] 136 mmol/L Normal 136-[address] [facility] Comment on above: Performed By: #### L 500.2500, L501.5200 #### [facility] [address] [place], [address] Urea nitrogen [Mass/Vol] 31 mg/dL High 7-18 [facility] Comment on above: Performed By: #### L 500.2500, L501.5200 #### [facility] [address] [place], [address] Basophil percentageOrdered B y: Deanjuma Reynolds on 10-29-2023 Chloride [Moles/Vol] 104 mmol/L 98-107 [facility] Glucose [Mass/Vol] 94 mg/dL 74-[address] [facility] Potassium [Moles/Vol] 3.6 mmol/L 3.5-5.1 [facility] Sodium [Moles/Vol] 136 mmol/L 136-[address] [facility] Cardiology Visit Reporton Cardiology Visit Report [facility] [address] [place] [address] OFFICE VISIT Date of Service: 10/29/23 MR#: [id number] Acct: [id number] Name: CLARK CASTLE Rep #: [id number] : 1985 Provider: Dr. Dean Reynolds MD Age/Sex: 38/M Location: [facility] [place] [place] Status: Signed HPI [facility] History of Present Illness Details: This is a 38-year-old male who presents the office today for a cardiovascular outpatient follow-up. He has a past medical history of hypertension with hypertensive urgency in May 2020 and abnormal ECG with T wave inversions in lead I and aVL noted in May 2020. He denies chest, arm, jaw, or neck discomfort. He denies palpitations. He denies bilateral lower extremity edema. He denies claudication. He denies shortness of breath with activity, shortness of breath at rest, orthopnea, or PND. He denies chronic cough. He denies significant, sudden weight gain. He states lightheadedness with position changes that improved with hydration. He denies dizziness, near-syncope, or syncope. He denies blood in urine, blood in stool, or epistaxis. He denies fever or chills. He denies myalgia. He denies fatigue. His exercise level has remained stable via regularly exercising 1-2 days a week. Intake Vital Signs 09/18/22 15:36 10/29/23 16:01 Height 5 ft 10 in 5 ft 10 in Weight: 242 lb BMI 34.7 BP 152/98 H Blood Pressure Location Lt brachial Position Sitting Respiration 16 Pulse 75 Pulse Source Monitor Intake Visit Reasons: 1 Y FU General Teller Required: No Accompanied by: Self Is patient in pain?: No Allergies No Known Allergies Allergy (Verified 10/29/23 16:01) Medications amlodipine 10 mg tablet 10 mg PO DAILY #30 tabs 10/29/23 [Rx Confirmed 10/29/23] carvedilol 25 mg tablet 25 mg PO BID #180 tabs 10/29/23 [Rx Confirmed 10/29/23] hydrochlorothiazide 25 mg tablet 25 mg PO DAILY #30 tabs 10/29/23 [Rx Confirmed 10/29/23] lisinopril 40 mg tablet 40 mg PO DAILY #30 tabs 10/29/23 [Rx Confirmed 10/29/23] spironolactone 50 mg tablet 50 mg PO DAILY #60 tabs 10/29/23 [Rx Confirmed 10/29/23] Ejection fraction %: 60 to 64 [facility] Medical History Essential (primary) hypertension High-renin essential hypertension Malignant hypertension Obesity Polycystic kidney Polycystic kidney disease Surgical History H/O hand surgery Hx of appendectomy Social History Smoking Status: Never smoker ROS Const Const: Negative for fatigue, weakness, headache(s), daytime sleepiness or difficulty sleeping Eyes Eyes: Negative for change in vision ENT ENT: Negative for headache(s), dizziness or Nosebleed/epistaxis Cardio Chest Pain: No Palpitations: No Edema: None Resp Respiratory: Positive for SOB with activity (climbing stairs); Negative for SOB at rest, SOB orthopnea SOB lying down or Cough GI GI: Negative nausea, vomiting or heartburn Neuro Neuro: Negative for dizziness, lightheadedness, near syncope, headache(s) or weakness Endo Endo: Negative for fatigue Cardiology Exam Const Appearance: cooperative, healthy appearing, comfortable and no acute distress Nutritional Appearance: well nourished and obese Orientation: alert, awake and oriented x3 Head Head: normal to inspection Ears: hearing grossly normal bilaterally Nose: external nose normal Face and Sinus: face symmetric Mouth: moist mucous membranes Eyes General: appearance normal, both eyes and all related structures Eyelids: eyelids normal EOM: EOM intact bilaterally Neck Neck: normal visual inspection and no JVD Carotids: normal carotid upstroke Chest Chest inspection: normal inspection of the chest, symmetric chest movement and normal respiratory effort; Negative cough Auscultation: Bilateral: Clear to Auscultation Cardio Rate: regular rate Rhythm: regular rhythm Heart sounds: S1 normal and S2 normal; Negative rub, gallop or murmur GI GI: normal to inspection and obese Neuro General: patient alert, patient awake, patient oriented x3 and CN's II-XI intact bilaterally Skin Skin: no rashes or lesions noted Extremities Pulses: Normal: Right Posterior Tibial Pulse, Left Posterior Tibial Pulse, Right Radial Pulse and Left Radial Pulse Lower Extremity Edema: None: Bilateral Psych Psychological: normal affect Supplemental Info Supplemental Information Echocardiogram from 05/27/2020: Interpretation Summary Normal LV size. Severe concentric left ventricular hypertrophy. Left ventricular systolic function is normal. The estimated ejection fraction is 60 %. Stage 2 diastolic dysfunction. Bubble contrast study negative for right to left interat (more content not included)... Normal [facility] - Chemistry and C hemistry - challengeOrdered By: Dean Reynolds on 10-29-2023 CO2 [Moles/Vol] 26.0 mmol/L 21.0-32.0 [facility] Magnesium [Mass/Vol] 2.0 mg/dL 1.6-2.6 [facility] Urea nitrogen/Creatinine [Mass ratio] 28.2 mg/mg 10-20 [facility] Magnesiumon 10-29-2023 Magnesium [Mass/Vol] 2.0 mg/dL Normal 1.6-2.6 [facility] Comment on above: Performed By: #### L 500.2500, [id number] #### [facility] [address] [place], [address] No Panel InformationOrdered By: Dean Reynolds on 10-29-2023 Estimated GFR (MDRD) Amer 97 mL/min >60 [facility] Comment on above: GFR Calc Estimated GFR (MDRD) Non-Af Amer 81 mL/min >60 [facility] Comment on above: Non- GFR Calc Serum or plasma calcium jean claude urement (mass/volume)Ordered By: Dean Reynolds on 10-29-2023 Calcium [Mass/Vol] 9.2 mg/dL 8.5-10.[address] [facility] Serum or plasma creatinine m easurement (mass/volume)Ordered By: Dean Reynolds on 10-29-2023 Creatinine [Mass/Vol] 1.10 mg/dL 0.70-1.30 [facility] Comment on above: The validity of the calculated GFR & GFRAA in patients over 70 years has not been determined. Clinical correlation is essential. Serum or plasma urea nitroge n measurement (mass/volume)Ordered By: Dean Reynolds on 10-29-2023 Urea nitrogen [Mass/Vol] 31 mg/dL 7-18 [facility] Thin prep Papanicolaou smear with manual screeningOrdered By: Dean Reynolds on 10-29-2023 Thin prep Papanicolaou smear with manual screening 6 5-15 [facility] Absolute lymphocyte counton 04-23-2022 Lymphocytes Auto (Unsp spec) [#/Vol] 2.45 10*3/uL 0.83-4.51 [facility] Work Phone: Basophil percentageon 2021 Basophils/100 WBC (Bld) 0.4 % 0-1 [facility] Work Phone: Bilirubin [Mass/Vol] 0.50 mg/dL 0.20-1.00 [facility] Work Phone: Comment on above: For patients on eltr ombopag therapy, use of Dimension [place] TBIL is not recommended. Chloride [Moles/Vol] 98 mmol/L 98-107 [facility] Work Phone: Eosinophils/100 WBC (Bld) 1.6 % 0-5 [facility] Work Phone: Glucose [Mass/Vol] 96 mg/dL 74-[address] [facility] Work Phone: Neutrophils (Bld) [#/Vol] 7.2 10*3/uL 2.0-7.7 [facility] Work Phone: Neutrophils/100 WBC (Bld) 64.4 % 47-70 [facility] Work Phone: Potassium [Moles/Vol] 4.6 mmol/L 3.5-5.1 [facility] Work Phone: Protein [Mass/Vol] 8.5 g/dL 6.4-8.[address] [facility] Work Phone: Sodium [Moles/Vol] 133 mmol/L 136-[address] [facility] Work Phone: WBC (Bld) [#/Vol] 11.1 10*3/uL 4.4-11.0 [facility] Work Phone: [phone] Blood erythrocytes count (nu mber/volume)on 04-23-2022 RBC (Bld) [#/Vol] 5.36 10*6/uL 4.6-6.2 [facility]: Blood hemoglobin measurement (mass/volume)on 04-23-2022 Hemoglobin (Bld) [Mass/Vol] 15.5 g/dL 13.0-16.5 [facility] Work Phone: Blood lymphocytes/100 leukoc yteson 04-23-2022 Lymphocytes/100 WBC (Bld) 22.0 % 19-41 [facility] Work Phone: Blood monocytes/100 leukocyt eson 04-23-2022 Monocytes/100 WBC (Bld) 11.1 % 0-10 [facility] Work Phone: Blood platelet mean volumeon 04-23-2022 Platelet mean volume (Bld) [Entitic vol] 11.3 fL 6.2-12.0 [facility] Work Phone: Determination of erythrocyte mean corpuscular volume (MCV)on 04-23-2022 MCV (RBC) [Entitic vol] 85.4 fL 80-94 [facility] Work Phone: Hematocrit Auto (Bld) [Volum e fraction]on 04-23-2022 Hematocrit (Bld) [Volume fraction] 45.8 % 40-54 [facility] Work Phone: Laboratory - Chemistry and C hemistry - challengeon 04-23-2022 ALP [Catalytic activity/Vol] 62 U/L 45-117 [facility] Work Phone: ALT [Catalytic activity/Vol] 46 U/L 16-61 [facility] Work Phone: CO2 [Moles/Vol] 26.0 mmol/L 21.0-32.0 [facility] Work Phone: Globulin (S) [Mass/Vol] 4.7 g/dL 2.2-4.2 [facility] Work Phone: Urea nitrogen/Creatinine [Mass ratio] 17.2 mg/mg 10-20 [facility] Work Phone: Laboratory - Hematology and Cell countson 04-23-2022 Erythrocyte distribution width (RBC) [Entitic vol] 41.1 fL 35.1-43.9 [facility] Work Phone: Erythrocyte distribution width (RBC) [Ratio] 13.2 % 11.6-14.6 [facility] Work Phone: Immature granulocytes/100 WBC (Bld) 0.500 % 0.0-0.9 [facility] Work Phone: Comment on above: IG% - Immature Granu locytes (promyelocytes, myelocytes and metamyelocytes) > 1% indicates that a LEFT SHIFT is Present. MCH (RBC) [Entitic mass] 28.9 pg 27.0-32.0 [facility] Work Phone: Nucleated RBC/100 WBC (Bld) [Ratio] 0 % 0-5 [facility] Work Phone: MCHC Auto (RBC) [Mass/Vol]on 04-23-2022 MCHC (RBC) [Mass/Vol] 33.8 g/dL 32-36 [facility] Work Phone: No Panel Informationon 04-23 Anti-Gliadin IgA Antibody 4 units 0-19 [facility] Work Phone: Comment on above: Negative 0 - 19 Weak Positive 20 - 30 Moderate to Strong Positive >30 Anti-Gliadin IgG Antibody 2 units 0-19 [facility] Work Phone: Comment on above: Negative 0 - 19 Weak Positive 20 - 30 Moderate to Strong Positive >30 Endomysial IgA Antibody Negative Negative [facility] Work Phone: Estimated GFR (MDRD) Amer 56 mL/min >60 [facility] Work Phone: Comment on above: GFR Calc Estimated GFR (MDRD) Non-Af Amer 46 mL/min >60 [facility] Work Phone: Comment on above: Non- GFR Calc Tissue Transglutaminase IgG Ab <2 U/mL 0-5 [facility] Work Phone: Comment on above: Negative 0 - 5 Weak Positive 6 - 9 Positive >9 Platelets bldon 04-23-2022 Platelets (Bld) [#/Vol] 230 10*3/uL 150-450 [facility] Work Phone: Serum IgA measurement (units /volume)on 04-23-2022 IgA Qn (S) 310 mg/dL 90-386 [facility] Work Phone: Comment on above: Performed at: [address] [id number] Director: Eros Jacome PhD, Phone: [phone] Serum or plasma albumin jean claude urement (mass/volume)on 04-23-2022 Albumin [Mass/Vol] 3.8 g/dL 3.2-5.[address] [facility] Work Phone: Serum or plasma albumin/glob ulin mass ratioon 04-23-2022 Albumin/Globulin [Mass ratio] 0.8 {ratio} 0.9-2.4 [facility] Work Phone: Serum or plasma calcium jean claude urement (mass/volume)on 04-23-2022 Calcium [Mass/Vol] 8.9 mg/dL 8.5-10.[address] [facility] Work Phone: Serum or plasma creatinine m easurement (mass/volume)on 04-23-2022 Creatinine [Mass/Vol] 1.80 mg/dL 0.70-1.30 [facility] Work Phone: Comment on above: The validity of the calculated GFR & GFRAA in patients over 70 years has not been determined. Clinical correlation is essential. Serum or plasma urea nitroge n measurement (mass/volume)on 04-23-2022 Urea nitrogen [Mass/Vol] 31 mg/dL 7-18 [facility] Work Phone: Serum tissue transglutaminas e IgA antibody assay (units/volume)on 04-23-2022 tTG IgA Qn (S) <2 U/mL 0-3 [facility] Work Phone: Comment on above: Negative 0 - 3 Weak Positive 4 - 10 Positive >10 Tissue Transglutaminase (tTG) has been identified as the endomysial antigen. Studies have demonstr- ated that endomysial IgA antibodies have over 99% specificity for gluten sensitive enteropathy. Thin prep Papanicolaou smear with manual screeningon 04-23-2022 Thin prep Papanicolaou smear with manual screening 28 U/L 15-37 [facility] Work Phone: Thin prep Papanicolaou smear with manual screening 9 5-15 [facility] Work Phone: Vital Signs Date Time Vital Sign Value Performing Clinician Faci lity 10-29-2023 16:01-0500 Body height 177.8 cm COMMERCIAL MANAGEMENT ACCOUNTANT-Cheo Haider COMMERCIAL MANAGEMENT ACCOUNTANT Work Phone: [facility] 10-29-2023 16:01-0500 Body mass index (BMI) [Ratio] 34.7 kg/m2 COMMERCIAL MANAGEMENT ACCOUNTANT-Cheo Haider COMMERCIAL MANAGEMENT ACCOUNTANT Work Phone: [facility] 10-29-2023 16:01-0500 Body weight 109.76 kg COMMERCIAL MANAGEMENT ACCOUNTANT-Cheo Haider COMMERCIAL MANAGEMENT ACCOUNTANT Work Phone: [facility] 10-29-2023 16:01-0500 Diastolic blood pressure 98 mm[Hg] COMMERCIAL MANAGEMENT ACCOUNTANT-hCeo Haider COMMERCIAL MANAGEMENT ACCOUNTANT Work Phone: [facility] 10-29-2023 16:01-0500 Heart rate 75 /min COMMERCIAL MANAGEMENT ACCOUNTANT-Cheo Haider COMMERCIAL MANAGEMENT ACCOUNTANT Work Phone: [facility] 10-29-2023 16:01-0500 Respiratory rate 16 /min COMMERCIAL MANAGEMENT ACCOUNTANTTara Haider COMMERCIAL MANAGEMENT ACCOUNTANT Work Phone: [facility] 10-29-2023 16:01-0500 Systolic blood pressure 152 mm[Hg] COMMERCIAL MANAGEMENT ACCOUNTANT-Cheo Haider COMMERCIAL MANAGEMENT ACCOUNTANT Work Phone: [facility] 04-23-2022 19:44-0400 Body height 177.8 cm [facility] Work Phone: 04-23-2022 19:44-0400 Body mass index (BMI) [Ratio] 34 kg/m2 [facility] Work Phone: 04-23-2022 19:44-0400 Body temperature 93.4 [degF] [facility] Work Phone: 04-23-2022 19:44-0400 Body weight 107.5 kg [facility] Work Phone: 04-23-2022 19:44-0400 Diastolic blood pressure 78 mm[Hg] [facility] Work Phone: 04-23-2022 19:44-0400 Heart rate 84 /min [facility] Work Phone: 04-23-2022 19:44-0400 Respiratory rate 18 /min [facility] Work Phone: 04-23-2022 19:44-0400 SaO2% (BldA) [Mass fraction] 96 % [facility] Work Phone: 04-23-2022 19:44-0400 Systolic blood pressure 112 mm[Hg] [facility] Work Phone: Encounters Encounter Date Encounter Type Care Provider Facility Start: 06-28-2024 End: 06-28-2024 ambulatory Kim Haider COMMERCIAL MANAGEMENT ACCOUNTANT [facility] Start: 06-28-2024 End: 06-28-2024 ambulatory Kim Haider COMMERCIAL MANAGEMENT ACCOUNTANT Facility:[facility] Start: 10-29-2023 End: 10-29-2023 Patient encounter procedure COMMERCIAL MANAGEMENT ACCOUNTANT-C Kim Haider COMMERCIAL MANAGEMENT ACCOUNTANT Work Phone: [facility] [employer] Work Phone: Start: 10-29-2023 End: 10-29-2023 ambulatory COMMERCIAL MANAGEMENT ACCOUNTANT-C Kim Haider COMMERCIAL MANAGEMENT ACCOUNTANT Work Phone: [facility] Work Phone: Start: 10-29-2023 End: 10-29-2023 ambulatory Kim Haider COMMERCIAL MANAGEMENT ACCOUNTANT Facility:[facility] Start: 04-23-2022 End: 04-23-2022 ambulatory [facility] Work Phone: Start: 04-23-2022 End: 04-23-2022 Patient encounter procedure [facility], Specimen Payers Date Payer Category Payer Self-pay [id number] 2023 Unknown [id number] 2015 Private Health Insurance [place] [id number] Health [address] [facility] [id number] Unknown [id number] Unknown [id number] Unknown [id number] 64 Unknown [id number] Social History Date Type Detail Facility Start: 09-06-2021 End: 10-29-2023 Tobacco smoking status NHIS Unknown if ever smoked [facility] Start: 05-27-2020 Occasional [facility] Start: 05-27-2020 None [facility] Start: 05-27-2020 Spouse/ Signif icant Other [facility] Start: 06-13-2015 Non-smoker [facility] Start: 1985 Sex Assigned At Male [facility] Evaluation note Note Date & Type Note Facility Evaluation note Diagnosis Onset Date Diarrhea acute Lower abdominal pain acute [facility] Work Phone: Evaluation note Note Date & Type Note Facility Evaluation note Diagnosis Onset Date Essential (primary) hypertension chronic [facility] Work Phone: Chief Complaint and Reason for Visit Chief Complaint Abdominal pain & Elina rrhea Reason for Visit Diarrhea Lower abdominal pain Chief Complaint 1 Y FU Reason for Visit Essential (primary) hypertension Family History No Family History Records Found Relationship Condition Age at Onset Recorded Date/T gabriel Unknown Family History?Hypertension Unknown May 27, 2020 5:18pm Family History?Hypertension Unknown May 27, 2020 5:18pm Family History?No pe rtinent history Unknown June 13, 2015 7:01pm Relationship Condition Age at Onset Recorded Date/T gabriel Unknown Family History?Hypertension Unknown May 27, 2020 4:18pm Family History?Hypertension Unknown May 27, 2020 4:18pm Family History?No pe rtinent history Unknown June 13, 2015 6:01pm Advance Directives No Advanced Directives Records Found Advance Directive Response Recorded Date/ Time Advance Directives No June 13, 2015 11:26am Living Will No April 09 1 5:01pm Power of Forming Process Line Worker No April 09, 2 021 5:01pm Advance Directive Response Recorded Date/ Time Advance Directives No June 13, 2015 10:26am Living Will No April 09 1 4:01pm Power of Forming Process Line Worker No April 09, 2 021 4:01pm Summary Purpose Additional Source Comments Goals (unrecognized section and content) Goals may be documented in a n alternate sectionGoals may be documented in an alternate section Care Teams (unrecognized sec tion and content) Team Status: Active Member Role Status Dates Kim Haider NP, COMMERCIAL MANAGEMENT ACCOUNTANT-C Family Provider Active Kim Haider NP, COMMERCIAL MANAGEMENT ACCOUNTANT-C Primary Care Provider Active Team Status: Inactive Member Role Status Dates Kim Haider NP, COMMERCIAL MANAGEMENT ACCOUNTANT-C Primary Care Provider, Referr ing Provider Active Dr. Dean Reynolds MD Attending Provider Active Team Status: Inactive Member Role Status Dates Kim Haider NP, COMMERCIAL MANAGEMENT ACCOUNTANT-C Primary Care Provider Active Dr. Dean Reynolds MD Attending Provider Active (unrecognized sect ion and content) No Status Records Found INFORMATION SOURCE (unrecogn ized section and content) DATE CREATED AUTHOR 07/22/2024 [facility] FOR RECORDS PERTAINING TO PATIENTS WHO ARE OR HAVE BEEN ENROLLED IN A CHEMICAL DEPENDENCY/SUBSTANCEABUSE PROGRAM, SOME INFORMATION MAY BE OMITTED. This clinical summary was aggregated from multiple sources. Caution should be exercised in using it in the provision of clinical care. This summary normalizes information from multiple sources, and as a consequence, information in this document may materially change the coding, format and clinical context of patient data. In addition, data may be omitted in some cases. CLINICAL DECISIONS SHOULD BE BASED ON THE PRIMARY CLINICAL RECORDS. [facility] provides no warranty or guarantee of the accuracy or completeness of information in this document.
[2025-08-10 18:29] LABS: Anion Gap 13 (5-15); BUN 24 mg/dL (4-19); BUN/Creat Ratio 20.0 RATIO (10-20); Calcium,Total 9.4 mg/dL (7.6-11.0); Carbon Dioxide 23.4 mmol/L (21.0-32.0); Chloride 102 mmol/L (98-108); Glucose 99 mg/dL (70-99); Potassium 4.3 mmol/L (3.3-5.1)
== END | disposition home or self-care (01) ==
LOC: LAB 15:55
PROVIDERS: PCP Nurse Practitioner; Referring Provider Nurse Practitioner Gerontology; Visit Provider Nurse Practitioner Gerontology
DX: I10 Essential (primary) hypertension (principal)
CPT/HCPCS: 36415; 80048; 84443; 85025